=== PATIENT | male | born 1950 | race Caucasian/White ===

== ENCOUNTER 2022-10-31 22:13 | Emergency (ER) | payer MEDICARE ==
--- NOTE | 2022-10-31 22:25 | ERPHSYRPT ---
- History of Present Illness Time Seen by Provider: 10/31/22 22:24 Source: patient Exam Limitations: no limitations Physician History: Samara was unloading clothes from dryer, turned around and hit head on cabinet. He denies LOC, but had significant bleeding and swelling of left forehead. He has a severe COOK w/out vision changes or focal deficit. He takes ASA 325mg QD. Occurred: just prior to arrival Severity: mild Head Injury Location: frontal Method of Injury: direct blow Loss of Consciousness: no loss of consciousness Associated Symptoms: denies symptoms Allergies/Adverse Reactions: No Known Drug Allergies Allergy (Unverified 10/31/22 22:20) Home Medications: Aspirin EC 325 mg [Ecotrin 325 MG] 1 tab PO DAILY 10/31/22 [History] Atorvastatin Calcium 40 mg PO DAILY 10/31/22 [History] Dapagliflozin Propanediol [Farxiga] 5 mg PO DAILY 10/31/22 [History] Fluticasone/Salmeterol 500/50* [Advair 500-50 Diskus] 1 puff IH BID 10/31/22 [History] Furosemide 20 mg [Lasix 20 mg] 1 tab PO DAILY 10/31/22 [History] Gabapentin 300 mg PO HS 10/31/22 [History] Glipizide 10 mg [Glucotrol 10 MG] 10 mg PO BID 10/31/22 [History] Linaclotide [Linzess] 72 mcg PO DAILY 10/31/22 [History] Liraglutide [Victoza 2-Nick] 1.8 mg SQ WEEKLY 10/31/22 [History] Lisinopril 10 mg [Zestril 10 MG] 10 mg PO DAILY 10/31/22 [History] Metoprolol Succinate 25 mg Xl* [Toprol-Xl 25MG Tablets] 25 mg PO HS 10/31/22 [History] - Review of Systems Constitutional: No Symptoms Eyes: No Symptoms Ears, Nose, & Throat: No Symptoms Respiratory: No Symptoms Cardiac: No Symptoms Abdominal/Gastrointestinal: No Symptoms Genitourinary Symptoms: No Symptoms Musculoskeletal: No Symptoms Skin: Other (bleeding cut) Neurological: Headache Psychological: No Symptoms Endocrine: No Symptoms Hematologic/Lymphatic: No Symptoms Immunological/Allergic: No Symptoms All Other Systems: Reviewed and Negative - Nursing Vital Signs Nursing Vital Signs: Initial Vital Signs Temperature 97.8 F 10/31/22 22:18 Pulse Rate 75 10/31/22 22:18 Respiratory Rate 20 10/31/22 22:18 Blood Pressure 154/72 10/31/22 22:18 O2 Sat by Pulse Oximetry 96 10/31/22 22:18 Pain Scale Pain Intensity 6 - [place] Coma Score Best Eye Response ([place]): (4) open spontaneously Best Verbal Response ([place]): (5) oriented Best Motor Response ([place]): (6) obeys commands [place] Total: 15 - Physical Exam General Appearance: no apparent distress Head Injury: active bleeding, lacerations (1.5cm left frontal region), swelling (left frontal region), tenderness, No Simmons's Sign, No raccoon eyes Eye Exam: bilateral eye: normal inspection, PERRL, EOMI ENT Exam: airway nml Neck Exam: supple, full range of motion, normal alignment, normal inspection Cardiovascular/Respiratory Exam: normal breath sounds, regular rate/rhythm, heart sounds normal Gastrointestinal/Abdominal Exam: soft, non tender Extremity Exam: non-tender, normal range of motion Mental Status Exam: alert, oriented x 3, cooperative bus cleaner Exam: normal hearing, normal speech, PERRL, tongue midline Coordination/Gait Exam: normal finger to nose, normal gait, normal cerebellar function Motor/Sensory Exam: no motor deficit, no sensory deficit, no pronator drift, CN II-XII intact Skin Exam: normal color, warm, dry, laceration (left frontal region, 1.5cm in length, skin avulsed) SpO2 Interpretation: normal SpO2: 96 O2 Delivery: Room Air Procedures - Laceration/Wound Repair Left Head Time of Procedure: 22:40 Wound Location: Left, forehead Wound Length (cm): 1.5 Wound's Depth, Shape: superficial Wound Explored: no foreign body noted Irrigated: Yes Hibiclens Prep: Yes Wound Debrided: minimal Wound Repaired With: Dermabond Sterile Dressing Applied?: No - Course Nursing assessment & vital signs reviewed: Yes - CT Exams Head CT Interpretation: Negative Ordered Tests: Active Orders 24 hr Category Date Time Status Cold Application STAT Care 10/31/22 22:21 Active Wound Care STAT Care 10/31/22 22:43 Active HEAD WITHOUT CONTRAST [CT] Stat Exams 10/31/22 22:45 Taken Medication Summary Discontinued Medications Generic Name Dose Route Start Last Admin Trade Name Franc PRN Reason Stop Dose Admin Acetaminophen 975 mg 10/31/22 22:43 10/31/22 22:47 Acetaminophen 325 Mg Tablet PO 10/31/22 22:44 975 mg STAT ONE Administration Acetaminophen Confirm 10/31/22 22:46 Acetaminophen 325 Mg Tablet Administered 10/31/22 22:47 Dose 975 mg .ROUTE [place]-MED ONE - Progress Progress: improved Progress Note: Laceration repaired with dermabond. Good hemostasis achieved. CT head neg for acute pathology. COOK improved after Tylenol. Fells safe for d/c. 10/31/22 23:43 Counseled pt/family regarding: lab results, rad results Medical Desision Making - Diagnostic Testing Diagnostic Testing: Diagnostic tests were ordered,analyzed, and reviewed by me and used in my medical decision making for this patient. Radiologic studies (if ordered) were read by me initially then discussed with the radiologist . - Risk of complications The pt has a mod risk of morbidity or mortality based on: Need for minor surgical intervention in patient with know risk factors - Departure Departure Disposition: Home Clinical Impression: Head trauma, Laceration, Headache Condition: Good Critical Care Time: No Referrals: DOCTOR,NO FAMILY [Primary Care Provider] - Follow up/PCP as directed Instructions: Laceration Repair With Glue (DC) Additional Instructions: You have been evaluated in the Emergency Department today for your head injury. Your CT scan did not show signs of bleeds or fractures in your head. We recommend you take 600mg ibuprofen every 6 hours or tylenol 650mg every 6 hours as needed for pain. If needed, you can alternate these medications so that you take one medication every 3 hours. For instance, at noon take ibuprofen, then at 3pm take tylenol, then at 6pm take ibuprofen. Please schedule an appointment for follow up with your primary care physician as soon as possible. Return to the Emergency Department if you experience worsening or uncontrolled pain, vision changes, recurrent vomiting, difficulty with normal activities, abnormal behavior, difficulty walking, numbness, weakness, or any other concerning symptoms. Thank you for choosing us for your care.
[2022-10-31] MEDS ORDERED: TYLENOL 325 MG PO ONE (22:43)
[2022-10-31] MEDS ORDERED: TYLENOL 325 MG ONE (22:46)
[2022-11-01] VITALS: BP 108/58; PULSE 71; O2SAT 94
--- NOTE | 2022-11-01 07:58 | XRAY ---
Indication: Left forehead injury. Multiple contiguous axial images obtained through the head without contrast. Comparison: None Age-appropriate global atrophy and minimal periventricular degenerative micro-ischemia bilaterally. No acute intracranial hemorrhage, abnormal extra-axial fluid collection, or mass effect. Fourth ventricle is midline without hydrocephalus. Small left frontal scalp hematoma near the vertex. Bony calvarium intact. Visualized paranasal sinuses and mastoid air cells are clear. Impression: Left scalp hematoma. Otherwise nonacute senile brain. Comment: Preliminary interpretation made by [facility]. No critical discrepancy.
== END 2022-11-01 00:04 | disposition home or self-care (01) ==
LOC: ED 22:13
DX: S01.81XA Laceration without foreign body of other part of head, initial encounter (principal); W22.03XA Walked into furniture, initial encounter; Y93.E2 Activity, laundry; R51.9 Headache, unspecified; Z79.84 Long term (current) use of oral hypoglycemic drugs; Z79.85 Long-term (current) use of injectable non-insulin antidiabetic drugs; Z79.899 Other long term (current) drug therapy
CPT/HCPCS: 12001; 70450; 99283; A9270-GY

== ENCOUNTER 2023-02-10 20:27 | Emergency (ER) | payer MEDICARE ==
[2023-02-10 21:30] LABS: Absolute Neutrophil Ct (ANC) 5.72 x10^3/uL (1.4-6.9); BASOPHIL % 0.9 % (0.0-0.4); Basophil (Absolute #) 0.08 x10^3/uL (0-0.4); Eosinophil (Absolute #) 0.17 x10^3/uL (0-0.5); Hematocrit 49.3 % (42-50); Hemoglobin 15.8 g/dL (12.5-18.0); IMMATURE GRAN # 0.03 x10^3u/L (0.00-0.03); IMMATURE GRAN % 0.4 % (0.00-0.4); Lymphocyte (Absolute #) 1.77 x10^3/uL (1.0-4.6); Lymphocytes % 20.7 % (24.0-44.0); Mean Cell Volume 82.6 fL (78-100); Mean Corpuscular Hemoglobin 26.5 pg (26-32); Mean Platelet Volume 8.8 fL (7.5-11.0); Monocyte (Absolute #) 0.78 x10^3/uL (0.0-1.3); Monocytes % 9.1 % (0.0-12.0); Neutrophil % 66.9 % (36.0-66.0); Platelet Count 188 x10^3/uL (150-450); Red Blood Count 5.97 x10^6/uL (4.1-5.6); Red Cell Distribution Width 13.7 % (11.5-14.0); White Blood Count 8.6 x10^3/uL (4.0-10.5)
[2023-02-10 21:38] LABS: ALBUMIN 4.3 g/dL (3.5-5.0); ALKALINE PHOSPHATASE 121 U/L (38-126); ANION GAP 14.3 MEQ/L (5-15); BLOOD UREA NITROGEN 22 mg/dL (9-20); CHLORIDE 100 mmol/L (98-107); Calcium 9.2 mg/dL (8.4-10.2); Carbon Dioxide 23 mmol/L (22-30); EST GLOMERULAR FILTRATION RATE > 60.0 ML/MIN; Glucose 186 mg/dL (74-106); Potassium 4.2 mmol/L (3.5-5.1); SGOT/AST 50 U/L (17-59); SGPT/ALT 41 U/L (0-50); SODIUM 133 mmol/L (137-145)
[2023-02-10 22:03] VITALS: BP 130/69; PULSE 79; O2SAT 92
[2023-02-10] MEDS ORDERED: Unasyn 1.5GM Vial*** 1.5 G in Sodium Chloride 0.9% 100 ML IV ONE (22:30)
[2023-02-10] MEDS ORDERED: Sodium Chloride 0.9% 100 ML ONE (22:34)
--- NOTE | 2023-02-10 22:37 | ERPHSYRPT ---
- History of Present Illness Time Seen by Provider: 02/10/23 20:33 Source: patient Exam Limitations: no limitations Patient Subjective Stated Complaint: pt states that he has redness, swelling, and a rash to his leg and arm Triage Nursing Assessment: pt ambulated into the er; pt is axo x4; c/o swelling to LLE; warmth, swelling, redness to LLE; strong left pedal pulse; good cap refill to LLE; abrasion present to rt upper arm; no warmth, swelling present to rt upper arm; skin PDW; vitals wnl; no SOB present Physician History: 72-year-old male with history of hypertension, hyperlipidemia, diabetes mellitus presented to the ER with chief complaint of left leg swelling for the last 3 days with progressive worsening with associated redness and moderate intensity sharp pain due to swelling and tightness of the leg. No fever or chills reported. Denies any fall or trauma. No difficulty movements at ankle and knee joint. Patient also have a small rash on the right arm with possible insect bite. Denies any chest pain palpitations or shortness of breath. Timing/Duration: day(s) (3) Quality: burning, painful Severity: mild, moderate Location: extremities Possible Causes: no cause identified Associated Symptoms: rash, swelling/mass/lumps Allergies/Adverse Reactions: No Known Drug Allergies Allergy (Verified 02/10/23 20:34) Home Medications: Aspirin EC 325 mg [Ecotrin 325 MG] 1 tab PO DAILY 10/31/22 [History] Atorvastatin Calcium 40 mg PO DAILY 10/31/22 [History] Dapagliflozin Propanediol [Farxiga] 5 mg PO DAILY 10/31/22 [History] Fluticasone/Salmeterol 500/50* [Advair 500-50 Diskus] 1 puff IH BID 10/31/22 [History] Furosemide 20 mg [Lasix 20 mg] 1 tab PO DAILY 10/31/22 [History] Gabapentin 300 mg PO HS 10/31/22 [History] Glipizide 10 mg [Glucotrol 10 MG] 10 mg PO BID 10/31/22 [History] Linaclotide [Linzess] 72 mcg PO DAILY 10/31/22 [History] Liraglutide [Victoza 2-Nick] 1.8 mg SQ WEEKLY 10/31/22 [History] Lisinopril 10 mg [Zestril 10 MG] 10 mg PO DAILY 10/31/22 [History] Metoprolol Succinate 25 mg Xl* [Toprol-Xl 25MG Tablets] 25 mg PO HS 10/31/22 [History] Hx Tetanus, Diphtheria Vaccination/Date Given: Yes Hx Influenza Vaccination/Date Given: No Hx Pneumococcal Vaccination/Date Given: No Travel Risk - International Travel Have you traveled outside of the country in past 3 weeks: No - Coronavirus Screening Are you exhibiting any of the following symptoms?: No Close contact with a COVID-19 positive Pt in past 14-21 Days: No - Vaccine Status Have you recieved a Covid-19 vaccination: No - Review of Systems Constitutional: No Symptoms Ears, Nose, & Throat: No Symptoms Respiratory: No Symptoms Cardiac: No Symptoms Abdominal/Gastrointestinal: No Symptoms Genitourinary Symptoms: No Symptoms Musculoskeletal: No Symptoms Skin: Cellulitis, Rash Neurological: No Symptoms Psychological: No Symptoms Endocrine: No Symptoms Hematologic/Lymphatic: No Symptoms - Past Medical History Pertinent Past Medical History: Yes Neurological History: Peripheral Neuropathy ENT History: No Pertinent History Cardiac History: High Cholesterol, Hypertension Respiratory History: Asthma, CHF, COPD Endocrine Medical History: Diabetes Type II Musculoskeletal History: Other GI Medical History: No Pertinent History History: No Pertinent History Psycho-Social History: No Pertinent History Male Reproductive Disorders: No Pertinent History Other Medical History: 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 - Past Surgical History Past Surgical History: Yes Neuro Surgical History: No Pertinent History Cardiac: No Pertinent History Respiratory: No Pertinent History Gastrointestinal: No Pertinent History Genitourinary: No Pertinent History Musculoskeletal: No Pertinent History Male Surgical History: No Pertinent History Other Surgical History: steel rods in lower back, fatty tumor removed - Social History Smoking Status: Former smoker Exposure to second hand smoke: No Drug Use: none Patient Lives Alone: No - Nursing Vital Signs Nursing Vital Signs: Initial Vital Signs Temperature 97.8 F 02/10/23 20:36 Pulse Rate 89 02/10/23 20:36 Respiratory Rate 22 02/10/23 20:36 Blood Pressure 97/74 02/10/23 20:36 O2 Sat by Pulse Oximetry 94 L 02/10/23 20:36 Pain Scale Pain Intensity 9 - Physical Exam General Appearance: no apparent distress, alert Eye Exam: PERRL/EOMI Ears, Nose, Throat Exam: normal ENT inspection Neck Exam: normal inspection, supple, full range of motion Respiratory Exam: normal breath sounds, lungs clear Cardiovascular Exam: regular rate/rhythm, normal heart sounds Gastrointestinal/Abdomen Exam: soft, No tenderness Extremity Exam: normal range of motion, pelvis stable, swelling, tenderness (Right lower half of leg swelling/erythema from mid calf to just above ankle. Blanchable, mild increased temperature, mild to moderate tenderness of soft tissue. No bony tenderness. Intact range of motion at ankle and knee. Distal neurovascular well intact.) Neurologic Exam: alert, oriented x 3, cooperative Skin Exam: normal color SpO2 Interpretation: normal SpO2: 92 O2 Delivery: Room Air Ordered Tests: Active Orders 24 hr Category Date Time Status IV Insertion STAT Care 02/10/23 21:17 Active VENOUS UNILAT/LIMITED EXTREMIT [US] Stat Exams 02/10/23 21:09 Taken BLOOD CULTURE Stat Lab 02/10/23 21:15 Received CBC W DIFF Stat Lab 02/10/23 21:15 Completed CMP Stat Lab 02/10/23 21:15 Completed Lactic Acid Stat Lab 02/10/23 21:15 Completed Medication Summary Generic Name Dose Route Start Last Admin Trade Name Freq PRN Reason Stop Dose Admin Ampicillin Sodium/Sulbactam 100 mls @ 200 mls/hr 02/10/23 22:30 02/10/23 22:42 Sodium 1.5 g/ Sodium Chloride IV 02/10/23 22:59 200 mls/hr STAT ONE Administration Discontinued Medications Generic Name Dose Route Start Last Admin Trade Name Freq PRN Reason Stop Dose Admin Sodium Chloride Confirm 02/10/23 22:34 Sodium Chloride 0.9% Administered 02/10/23 22:35 Dose 100 mls @ ud .ROUTE .STK-MED ONE Lab/Rad Data: Laboratory Result Diagrams 02/10/23 21:15 02/10/23 21:15 Laboratory Results 02/10/23 02/10/23 02/10/23 Range/Units 21:15 21:15 21:15 WBC 8.6 (4.0-10.5) x10^3/uL RBC 5.97 H (4.1-5.6) x10^6/uL Hgb 15.8 (12.5-18.0) g/dL Hct 49.3 (42-50) % MCV 82.6 (78-100) fL MCH 26.5 (26-32) pg MCHC 32.0 (32-36) g/dL RDW 13.7 (11.5-14.0) % Plt Count 188 (150-450) x10^3/uL MPV 8.8 (7.5-11.0) fL Gran % 66.9 H (36.0-66.0) % Immature Gran % (Auto) 0.4 (0.00-0.4) % Nucleat RBC Rel Count 0.0 (0.00-0.1) % Eos # (Auto) 0.17 (0-0.5) x10^3/uL Immature Gran # (Auto) 0.03 (0.00-0.03) x10^3u/L Absolute Lymphs (auto) 1.77 (1.0-4.6) x10^3/uL Absolute Monos (auto) 0.78 (0.0-1.3) x10^3/uL Absolute Nucleated RBC 0.00 (0.00-0.01) x10^3u/L Lymphocytes % 20.7 L (24.0-44.0) % Monocytes % 9.1 (0.0-12.0) % Eosinophils % 2.0 (0.00-5.0) % Basophils % 0.9 (0.0-0.4) % Absolute Granulocytes 5.72 (1.4-6.9) x10^3/uL Basophils # 0.08 (0-0.4) x10^3/uL Sodium 133 L (137-145) mmol/L Potassium 4.2 (3.5-5.1) mmol/L Chloride 100 (98-107) mmol/L Carbon Dioxide 23 (22-30) mmol/L Anion Gap 14.3 (5-15) MEQ/L BUN 22 H (9-20) mg/dL Creatinine 1.00 (0.66-1.25) mg/dL Estimated GFR > 60.0 ML/MIN Glucose 186 H (74-106) mg/dL Lactic Acid 1.1 (0.4-2.0) Calcium 9.2 (8.4-10.2) mg/dL Total Bilirubin 1.60 H (0.2-1.3) mg/dL AST 50 (17-59) U/L ALT 41 (0-50) U/L Alkaline Phosphatase 121 (38-126) U/L Serum Total Protein 7.0 (6.3-8.2) g/dL Albumin 4.3 (3.5-5.0) g/dL - Progress Progress: unchanged, re-examined Progress Note: 02/10/23 22:49 72-year-old male with history of hypertension, hyperlipidemia, diabetes mellitus presented to the ER with chief complaint of left leg swelling for the last 3 days with progressive worsening with associated redness and moderate intensity sharp pain due to swelling and tightness of the leg. No fever or chills reported. Denies any fall or trauma. No difficulty movements at ankle and knee joint. Patient also have a small rash on the right arm with possible insect bite. Denies any chest pain palpitations or shortness of breath. Differentials include cellulitis, fracture, DVT, congestive heart related swelling, insect bite etc. Offered pain medication which she declined. Has normal white count and fairly unremarkable chemistries and normal lactate. Blood cultures are obtained. I have obtained ultrasound which is negative for DVT per preliminary report, official/final report is pending. No bony tenderness. No swelling/edema of the right side suggesting CHF. Patient does not have any chest pain and lungs clear to auscultation. I believe patient has cellulitis, started on antibiotics. Given a dose of Unasyn here and will continue with Augmentin to go home. Discussed signs symptoms of worsening nee ding return to ER which he seems understanding. Stable for discharge. Counseled pt/family regarding: lab results, diagnosis, need for follow-up, rad results Medical Desision Making - Independent Historian Additional History obtained from: Child - Discussion of managment Reviewed:: Test results, Need for additional workup Agreed on:: Treatment plan, need for follow-up - Diagnostic Testing Diagnostic test were ordered, analyzed, and reviewed by me: Yes Radiological Interpretation: Reviewed by me - Risk of complications The pt has a mod risk of morbidity or mortality based on: Need for prescription drug management - Departure Departure Disposition: Home Clinical Impression: Left leg cellulitis Condition: Stable Critical Care Time: No Referrals: DOCTOR,NO FAMILY [Primary Care Provider] - Follow up/PCP as directed Instructions: Cellulitis (Skin Infection), Adult (DC) Additional Instructions: Take Tylenol as needed for pain. Keep it elevated. Continue with your current medications Follow-up with primary care for reevaluation in 2 days. Return to ER for increasing pain swelling redness, fever chills etc. Prescriptions: Amox Tr/Potass Clav. 875 mg [Augmentin 875-125 Tablet] 875 mg PO BID #14 tablet
--- NOTE | 2023-02-11 08:34 | XRAY ---
Indication: Pain and swelling. Two-dimensional sonogram and color Doppler imaging of the major venous vessels of the left leg performed. Comparison: None No thrombus seen in the examined deep venous vessels of the left leg including greater saphenous vein. Veins demonstrate normal compressibility. Venous waveforms are normal with and without augmentation. Impression: Left leg negative for DVT. Comment: Preliminary report was given.
== END 2023-02-10 23:23 | disposition home or self-care (01) ==
LOC: ED 20:27
DX: L03.116 Cellulitis of left lower limb (principal); R60.0 Localized edema; M79.605 Pain in left leg; I10 Essential (primary) hypertension; E78.5 Hyperlipidemia, unspecified; E11.42 Type 2 diabetes mellitus with diabetic polyneuropathy; Z79.84 Long term (current) use of oral hypoglycemic drugs; Z79.85 Long-term (current) use of injectable non-insulin antidiabetic drugs; Z79.899 Other long term (current) drug therapy; Z28.310 Unvaccinated for COVID-19
CPT/HCPCS: 36000; 36415; 80053; 83605; 85025; 87040; 93971; 96374; 99284; J0295

== ENCOUNTER 2023-09-06 05:17 | Emergency (ER) | payer MEDICARE ==
[2023-09-06 05:37] VITALS: TEMP 96.7
[2023-09-06] MEDS ORDERED: TORAdol 30 mg Injection IM ONE (05:43)
[2023-09-06] MEDS ORDERED: Norflex 60 MG/2 ML IM ONE (05:43)
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
[2023-09-06] MEDS ORDERED: TORAdol 30 mg Injection ONE (05:49)
[2023-09-06] MEDS ORDERED: Norflex 60 MG/2 ML ONE (05:50)
[2023-09-06 07:04] VITALS: RESP 20
--- NOTE | 2023-09-06 08:09 | XRAY ---
CLINICAL HISTORY:FABIOLA HIP PAIN, LBP, SACRUM AND COCCY COMPARISON:None TECHNIQUE:CT scan of lumbar spine done. Axial images were obtained with reformatted coronal and sagittal images and submitted for interpretation. FINDINGS: Spinal fixation is noted in between the L4-L5 and S1 vertebral bodies with a disc spacer in between the L4-L5 and L5-S1 level no evidence of break or loosening noted. Right-sided laminectomy noted at L5 S1 level. Multilevel anterior osteophytes are seen with multilevel bilateral facet joint arthropathy. Preserved physiological lumbar lordosis. Normal vertebral bodies height and alignment. Intact vertebral bodies and neural arches. A sclerotic area was noted on the left side of the sacroiliac joint. No definite fractures could be detected. Segmental disc analysis level by level: L1- L2: There is no significant disc herniation or neural foraminal narrowing visualized. Central canal is unremarkable. No sign of lateral recess stenosis. Nerve roots are normal. L2- L3: Bilateral paracentral disc protrusion noted measuring 2.5 mm causing bilateral mild neural foraminal narrowing and compressive affect on bilateral exiting nerve roots, no central canal is stenosis noted. L3- L4: Central and bilateral paracentral disc protrusion is noted measuring 3 mm with specks of air in the central canal causing bilateral mild neural foramina narrowing and compressive effect on bilateral exiting nerve roots . L4- L5: Disc spacers is noted with right laminectomy.The central canal appears unremarkable L5- S1: Disc spacers is noted with right laminectomy.The central canal appears unremarkable No retro paraspinal soft tissue masses. No developmental canal stenosis. IMPRESSION: The bilateral paracentral disc protrusion at the L2-L3 level and a central and bilateral paracentral disc protrusion at the L3-L4 level caused bilateral mild neural foraminal narrowing. Disc spacer in between the L4-L5 and L5-S1 level with right-sided laminectomy while central canal at this level appears unremarkable. Spinal fixation in between the L4-L5 and S1 vertebral bodies without evidence of break or loosening. Electronically Signed by: Winston Cruz MD. (09/06/2023 08:05:25 EST)
--- NOTE | 2023-09-06 08:31 | XRAY ---
CLINICAL HISTORY:FABIOLA HIP PAIN, LBP COMPARISON:None. TECHNIQUE:A CT scan of the pelvis was performed without IV contrast. Coronal and sagittal reconstructive images were obtained. FINDINGS: A well-defined Lucent/lytic area with marginal sclerosis is noted in the left side of the iliac bone lateral to the left sacroiliac joint with cortical erosion of the lateral side of the iliac bone. Spinal fixators are noted in between the L4-L5 and S1 levels without evidence of break or loosening. Both hip joints are normal. The hip joints reveal normal rounded contour. No evidence of articular collapse. Few cystic changes were noted in both acetabulums With tiny marginal osteophyte more marked on the left side, likely degenerative The joint spaces are normal. No loose bodies.With tiny marginal There is no evidence of joint effusion. Bilateral sacroiliac joints appear normal. The visualized soft tissues are normal. The prostate appears bulky with central calcification. A hernial defect is noted in the anterior abdominal wall in the midline in the infra-umbilical region with fatty omentum as a content. IMPRESSION: 1. Early degenerative changes were noted in both hip joints more marked on left side. 2. A Lucent/Lytic area with sclerotic margins is noted in the left side of the iliac bone lateral to the left sacroiliac joint with cortical erosion of the lateral side of the iliac bone which is a continuation of this sclerotic area findings could be due to old healed infective changes? If indicated clinically would recommend further workup Electronically Signed by: Winston Cruz MD. (09/06/2023 08:26:26 EST)
[2023-09-06 08:34] VITALS: O2SAT 95
[2023-09-06 09:04] LABS: Absolute Neutrophil Ct (ANC) 5.54 x10^3/uL (1.4-6.9); BASOPHIL % 0.5 % (0.0-0.4); Basophil (Absolute #) 0.04 x10^3/uL (0-0.4); Eosinophil % 1.7 % (0.00-5.0); Eosinophil (Absolute #) 0.13 x10^3/uL (0-0.5); Hematocrit 49.1 % (42-50); Hemoglobin 15.2 g/dL (12.5-18.0); IMMATURE GRAN # 0.04 x10^3u/L (0.00-0.03); IMMATURE GRAN % 0.5 % (0.00-0.4); Lymphocyte (Absolute #) 1.42 x10^3/uL (1.0-4.6); Lymphocytes % 18.2 % (24.0-44.0); Mean Cell Volume 83.2 fL (78-100); Mean Corpuscular Hemoglobin 25.8 pg (26-32); Mean Platelet Volume 9.2 fL (7.5-11.0); Monocyte (Absolute #) 0.63 x10^3/uL (0.0-1.3); Monocytes % 8.1 % (0.0-12.0); Platelet Count 135 x10^3/uL (150-450); Red Cell Distribution Width 13.9 % (11.5-14.0); White Blood Count 7.8 x10^3/uL (4.0-10.5)
[2023-09-06 09:17] LABS: ALBUMIN 3.9 g/dL (3.5-5.0); ANION GAP 10.7 MEQ/L (5-15); BILIRUBIN,TOTAL 1.2 mg/dL (0.2-1.3); Calcium 8.9 mg/dL (8.4-10.2); Creatinine 1 1.02 mg/dL (0.66-1.25); EST GLOMERULAR FILTRATION RATE 78.1 ML/MIN; Potassium 4.2 mmol/L (3.5-5.1); Total Protein 6.7 g/dL (6.3-8.2)
[2023-09-06 09:25] LABS: Slide Review 1 YES
[2023-09-06 09:40] VITALS: BP 122/76; PULSE 70
== END 2023-09-06 09:57 | disposition home or self-care (01) ==
LOC: ED 05:17
DX: M25.552 Pain in left hip (principal); M54.50 Low back pain, unspecified; I11.0 Hypertensive heart disease with heart failure; I50.9 Heart failure, unspecified; E11.42 Type 2 diabetes mellitus with diabetic polyneuropathy; Z79.84 Long term (current) use of oral hypoglycemic drugs; Z79.85 Long-term (current) use of injectable non-insulin antidiabetic drugs; Z79.891 Long term (current) use of opiate analgesic; Z79.899 Other long term (current) drug therapy; Z28.310 Unvaccinated for COVID-19
CPT/HCPCS: 36415; 72131; 72192; 80053; 83605; 85025; 85652; 96372; 99283; J1885; J2360

== ENCOUNTER 2024-03-14 13:39 | Emergency (ER) | payer MEDICARE ==
--- NOTE | 2024-03-14 14:11 | ERPHSYRPT ---
- History of Present Illness Time Seen by Provider: 03/14/24 14:10 Source: patient Physician History: 73-year-old male referred to our ED by his primary care doctor for hyperglycemia. Patient states he checked his blood sugar in his office today. It was 350. Patient followed up with his primary care doctor. It was reportedly 600 in the office. Patient was sent to our ED for evaluation and treatment. Patient was advised to follow-up with his primary care doctor tomorrow morning. No chest pain or shortness of breath. No nausea vomiting or diaphoresis. Patient is currently asymptomatic. He voices no other complaints or concerns at this time. Portions of this note were created with voice recognition technology. There may be grammatical, spelling, punctuation or sound alike errors Timing/Duration: today Severity: moderate Modifying Factors: Improves With: nothing Associated Symptoms: denies symptoms Allergies/Adverse Reactions: No Known Drug Allergies Allergy (Verified 03/14/24 13:59) Home Medications: Aspirin EC 325 mg [Ecotrin 325 MG] 1 tab PO DAILY 10/31/22 [History] Atorvastatin Calcium 40 mg PO HS 10/31/22 [History] Dapagliflozin Propanediol [Farxiga] 5 mg PO DAILY 10/31/22 [History] Furosemide 20 mg [Lasix 20 mg] 1 tab PO DAILY 10/31/22 [History] Gabapentin 300 mg PO DAILY 10/31/22 [History] Glipizide 10 mg [Glucotrol 10 MG] 10 mg PO DAILY 10/31/22 [History] Linaclotide [Linzess] 145 mcg PO DAILY 10/31/22 [History] Liraglutide [Victoza 2-Nick] 1.8 mg SQ DAILY 10/31/22 [History] Lisinopril 10 mg [Zestril 10 MG] 10 mg PO DAILY 10/31/22 [History] Metoprolol Succinate 25 mg Xl* [Toprol-Xl 25MG Tablets] 25 mg PO DAILY 10/31/22 [History] Cholecalciferol (Vitamin D3) [Vitamin D] 1,000 unit PO DAILY 09/06/23 [History] Fluticasone/Salmeterol 500/50* [Advair 500-50 Diskus] 1 each IH BID 09/06/23 [History] Nitroglycerin 0.4 mg Tablet [Nitrostat 0.4 MG Tablet] 0.4 mg SL UD 09/06/23 [History] Potassium Chloride [Klor-Con 10] 1 tab PO DAILY 09/06/23 [History] Hx Tetanus, Diphtheria Vaccination/Date Given: Yes Hx Influenza Vaccination/Date Given: No Hx Pneumococcal Vaccination/Date Given: No Travel Risk - Emerging Infectious Disease Are you exhibiting symptoms associated with any current EIDs: No - Review of Systems Constitutional: No Symptoms, No Fever, No Chills Eyes: No Symptoms Ears, Nose, & Throat: No Symptoms Respiratory: No Symptoms, No Cough, No Dyspnea Cardiac: No Symptoms, No Chest Pain, No Edema, No Syncope Abdominal/Gastrointestinal: No Symptoms, No Abdominal Pain, No Nausea, No Vomiting, No Diarrhea Genitourinary Symptoms: No Symptoms, No Dysuria Musculoskeletal: No Symptoms, No Back Pain, No Neck Pain Skin: No Rash Neurological: No Dizziness, No Focal Weakness, No Sensory Changes Psychological: No Symptoms Endocrine: No Symptoms All Other Systems: Reviewed and Negative - Past Medical History Pertinent Past Medical History: Yes Neurological History: Peripheral Neuropathy ENT History: No Pertinent History Cardiac History: High Cholesterol, Hypertension Respiratory History: Asthma, CHF, COPD Endocrine Medical History: Diabetes Type II Musculoskeletal History: Other GI Medical History: No Pertinent History History: No Pertinent History Psycho-Social History: No Pertinent History Male Reproductive Disorders: No Pertinent History Other Medical History: 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 - Past Surgical History Past Surgical History: Yes Neuro Surgical History: No Pertinent History Cardiac: No Pertinent History Respiratory: No Pertinent History Gastrointestinal: No Pertinent History Genitourinary: No Pertinent History Musculoskeletal: No Pertinent History Male Surgical History: No Pertinent History Other Surgical History: steel rods in lower back, fatty tumor removed - Social History Smoking Status: Former smoker Exposure to second hand smoke: No Drug Use: none Patient Lives Alone: No - Social Determinants of Health Will the patient participate in the screening: Declined to provide - Nursing Vital Signs Nursing Vital Signs: Initial Vital Signs Temperature 98.4 F 03/14/24 14:00 Pulse Rate 89 03/14/24 14:00 Respiratory Rate 20 03/14/24 14:00 Blood Pressure 137/96 03/14/24 14:00 O2 Sat by Pulse Oximetry 95 06/25/24 14:00 Pain Scale Pain Intensity 0 - Physical Exam General Appearance: no apparent distress, alert Eye Exam: PERRL/EOMI, eyes nml inspection Ears, Nose, Throat Exam: normal ENT inspection, moist mucous membranes Neck Exam: normal inspection, non-tender, supple, full range of motion Respiratory Exam: normal breath sounds, lungs clear, airway intact, No respiratory distress Cardiovascular Exam: regular rate/rhythm, normal heart sounds, normal peripheral pulses Gastrointestinal/Abdomen Exam: soft, normal bowel sounds, No tenderness, No mass Back Exam: normal inspection, normal range of motion, No CVA tenderness, No vertebral tenderness Extremity Exam: normal inspection, normal range of motion, pelvis stable Neurologic Exam: alert, oriented x 3, cooperative, normal mood/affect, nml cerebellar function, nml station & gait, sensation nml, No motor deficits Skin Exam: normal color, warm, dry, No rash Lymphatic Exam: No adenopathy SpO2 Interpretation: normal SpO2: 95 O2 Delivery: Room Air - Course Nursing assessment & vital signs reviewed: Yes EKG Interpreted by Me: RATE ([id number]), Sinus Rhythm, NORMAL AXIS, NORMAL INTERVALS Ordered Tests: Active Orders 24 hr Category Date Time Status Crusher And Binder Operator STAT Care 03/14/24 13:58 Active EKG-ER Only STAT Care 03/14/24 13:58 Active IV Insertion STAT Care 03/14/24 13:58 Active POCT Glucose Check STAT Care 03/14/24 18:02 Active Pulse Oximetry (ED) STAT Care 03/14/24 13:58 Active CBC W DIFF Stat Lab 03/14/24 14:00 Completed CMP Stat Lab 03/14/24 14:00 Completed CMP Stat Lab 03/14/24 18:07 Completed POCT GLUCOSE Stat Lab 03/14/24 17:58 Completed TROPONIN Q4H Lab 03/14/24 14:00 Completed TROPONIN Q4H Lab 03/14/24 18:07 Completed TROPONIN Q4H Lab 03/14/24 22:00 Ordered UA W/RFX UR CULTURE Stat Lab 03/14/24 14:16 Completed Medication Summary Generic Name Dose Route Start Last Admin Trade Name Freq PRN Reason Stop Dose Admin Sodium Chloride 1,000 mls @ 100 mls/hr 03/14/24 14:00 03/14/24 14:16 Sodium Chloride 0.9% 1000 Ml IV 04/13/24 13:59 100 mls/hr .Q10H PARKER Administration Discontinued Medications Generic Name Dose Route Start Last Admin Trade Name Franc PRN Reason Stop Dose Admin Sodium Chloride 1,000 mls @ 999 mls/hr 03/14/24 16:15 03/14/24 18:19 Sodium Chloride 0.9% 1000 Ml IV 03/14/24 17:15 Infused .Q1H1M STA Infusion Insulin Human Regular 6 unit 03/14/24 17:59 03/14/24 18:19 Insulin Regular, Human 1 Unit IV 03/14/24 18:00 6 unit STAT ONE Administration Insulin Human Regular Confirm 03/14/24 18:18 Insulin Regular, Human 1 Unit Administered 03/14/24 18:19 Dose 6 unit .ROUTE .Overwolf ONE Lab/Rad Data: Laboratory Result Diagrams 03/14/24 14:00 03/14/24 18:07 Laboratory Results 03/14/24 03/14/24 03/14/24 Range/Units 18:07 18:07 17:58 WBC (4.23-9.07) x10^3/uL RBC (4.63-6.08) x10^6/uL Hgb (13.7-17.5) g/dL Hct (40.1-51.0) % MCV (79.0-92.2) fL MCH (25.7-32.2) pg MCHC (32.3-36.5) g/dL RDW (11.6-14.4) % Plt Count (163-337) x10^3/uL MPV (9.4-12.4) fL Gran % (34.0-67.9) % Immature Gran % (Auto) (0.001-0.429) % Nucleat RBC Rel Count (0.00-0.2) % Eos # (Auto) (0.04-0.54) x10^3/uL Immature Gran # (Auto) (0.001-0.031) x10^3u/L Absolute Lymphs (auto) (1.32-3.57) x10^3/uL Absolute Monos (auto) (0.30-0.82) x10^3/uL Absolute Nucleated RBC (0.00-0.012) x10^3u/L Lymphocytes % (21.8-53.1) % Monocytes % (5.3-12.2) % Eosinophils % (0.8-7.0) % Basophils % (0.2-1.2) % Absolute Granulocytes (1.78-5.38) x10^3/uL Basophils # (0.01-0.08) x10^3/uL Sodium 134 L D (135-145) mmol/L Potassium 4.3 (3.5-5.1) mmol/L Chloride 103 (98-107) mmol/L Carbon Dioxide 25 (22-30) mmol/L Anion Gap 10.1 (5-15) MEQ/L BUN 17 (9-20) mg/dL Creatinine 0.82 (0.66-1.25) mg/dL Estimated GFR 93.3 ML/MIN Glucose 354 H (74-106) mg/dL POC Glucometer 355 H (74 to 106) mg/dL Calcium 8.7 (8.4-10.2) mg/dL Total Bilirubin 1.70 H (0.2-1.3) mg/dL AST 22 (17-59) U/L ALT 37 (0-50) U/L Alkaline Phosphatase 137 H (38-126) U/L Troponin I < 0.012 (0.000-0.033) ng/mL Serum Total Protein 6.1 L (6.3-8.2) g/dL Albumin 3.7 (3.5-5.0) g/dL Urine Color (Yellow) Urine Appearance (Clear) Urine pH (4.6-8.0) Ur Specific [place] (1.005-1.030) Urine Protein (Negative) Urine Glucose (UA) (Negative) mg/dL Urine Ketones (Negative) Urine Blood (Negative) Urine Nitrite (Negative) Urine Bilirubin (Negative) Urine Urobilinogen (0.2) mg/dL Ur Leukocyte Esterase (Negative) U Hyaline Cast (Auto) (0-2) /LPF Urine Microscopic RBC (0-5) /HPF Urine Microscopic WBC (0-5) /HPF Ur Epithelial Cells (None Seen) /HPF Urine Bacteria (None Seen) /HPF Urine Culture Reflexed (NO) 03/14/24 03/14/24 03/14/24 Range/Units 14:16 14:00 14:00 WBC (4.23-9.07) x10^3/uL RBC (4.63-6.08) x10^6/uL Hgb (13.7-17.5) g/dL Hct (40.1-51.0) % MCV (79.0-92.2) fL MCH (25.7-32.2) pg MCHC (32.3-36.5) g/dL RDW (11.6-14.4) % Plt Count (163-337) x10^3/uL MPV (9.4-12.4) fL Gran % (34.0-67.9) % Immature Gran % (Auto) (0.001-0.429) % Nucleat RBC Rel Count (0.00-0.2) % Eos # (Auto) (0.04-0.54) x10^3/uL Immature Gran # (Auto) (0.001-0.031) x10^3u/L Absolute Lymphs (auto) (1.32-3.57) x10^3/uL Absolute Monos (auto) (0.30-0.82) x10^3/uL Absolute Nucleated RBC (0.00-0.012) x10^3u/L Lymphocytes % (21.8-53.1) % Monocytes % (5.3-12.2) % Eosinophils % (0.8-7.0) % Basophils % (0.2-1.2) % Absolute Granulocytes (1.78-5.38) x10^3/uL Basophils # (0.01-0.08) x10^3/uL Sodium 123 L (135-145) mmol/L Potassium 3.9 (3.5-5.1) mmol/L Chloride 92 L (98-107) mmol/L Carbon Dioxide 20 L (22-30) mmol/L Anion Gap 15.4 H (5-15) MEQ/L BUN 20 (9-20) mg/dL Creatinine 0.92 (0.66-1.25) mg/dL Estimated GFR 88.4 ML/MIN Glucose 806 H* (74-106) mg/dL POC Glucometer (74 to 106) mg/dL Calcium 8.8 (8.4-10.2) mg/dL Total Bilirubin 1.90 H (0.2-1.3) mg/dL AST 22 (17-59) U/L ALT 39 (0-50) U/L Alkaline Phosphatase 175 H (38-126) U/L Troponin I < 0.012 (0.000-0.033) ng/mL Serum Total Protein 6.2 L (6.3-8.2) g/dL Albumin 3.8 (3.5-5.0) g/dL Urine Color Yellow (Yellow) Urine Appearance Clear (Clear) Urine pH 5.0 (4.6-8.0) Ur Specific [place] >=1.030 A (1.005-1.030) Urine Protein Negative (Negative) Urine Glucose (UA) >=1000 A (Negative) mg/dL Urine Ketones Negative (Negative) Urine Blood Negative (Negative) Urine Nitrite Negative (Negative) Urine Bilirubin Negative (Negative) Urine Urobilinogen 0.2 (0.2) mg/dL Ur Leukocyte Esterase Negative (Negative) U Hyaline Cast (Auto) NONE SEEN (0-2) /LPF Urine Microscopic RBC 0-2 (0-5) /HPF Urine Microscopic WBC 0-2 (0-5) /HPF Ur Epithelial Cells None Seen (None Seen) /HPF Urine Bacteria None Seen (None Seen) /HPF Urine Culture Reflexed NO (NO) 03/14/24 Range/Units 14:00 WBC 11.0 H (4.23-9.07) x10^3/uL RBC 5.66 (4.63-6.08) x10^6/uL Hgb 15.2 (13.7-17.5) g/dL Hct 47.1 (40.1-51.0) % MCV 83.2 (79.0-92.2) fL MCH 26.9 (25.7-32.2) pg MCHC 32.3 (32.3-36.5) g/dL RDW 14.3 (11.6-14.4) % Plt Count 171 (163-337) x10^3/uL MPV 9.3 L (9.4-12.4) fL Gran % 84.6 H (34.0-67.9) % Immature Gran % (Auto) 0.5 H (0.001-0.429) % Nucleat RBC Rel Count 0.0 (0.00-0.2) % Eos # (Auto) 0.04 (0.04-0.54) x10^3/uL Immature Gran # (Auto) 0.05 H (0.001-0.031) x10^3u/L Absolute Lymphs (auto) 0.91 L (1.32-3.57) x10^3/uL Absolute Monos (auto) 0.65 (0.30-0.82) x10^3/uL Absolute Nucleated RBC 0.00 (0.00-0.012) x10^3u/L Lymphocytes % 8.2 L (21.8-53.1) % Monocytes % 5.9 (5.3-12.2) % Eosinophils % 0.4 L (0.8-7.0) % Basophils % 0.4 (0.2-1.2) % Absolute Granulocytes 9.35 H (1.78-5.38) x10^3/uL Basophils # 0.04 (0.01-0.08) x10^3/uL Sodium (135-145) mmol/L Potassium (3.5-5.1) mmol/L Chloride (98-107) mmol/L Carbon Dioxide (22-30) mmol/L Anion Gap (5-15) MEQ/L BUN (9-20) mg/dL Creatinine (0.66-1.25) mg/dL Estimated GFR ML/MIN Glucose (74-106) mg/dL POC Glucometer (74 to 106) mg/dL Calcium (8.4-10.2) mg/dL Total Bilirubin (0.2-1.3) mg/dL AST (17-59) U/L ALT (0-50) U/L Alkaline Phosphatase (38-126) U/L Troponin I (0.000-0.033) ng/mL Serum Total Protein (6.3-8.2) g/dL Albumin (3.5-5.0) g/dL Urine Color (Yellow) Urine Appearance (Clear) Urine pH (4.6-8.0) Ur Specific [place] (1.005-1.030) Urine Protein (Negative) Urine Glucose (UA) (Negative) mg/dL Urine Ketones (Negative) Urine Blood (Negative) Urine Nitrite (Negative) Urine Bilirubin (Negative) Urine Urobilinogen (0.2) mg/dL Ur Leukocyte Esterase (Negative) U Hyaline Cast (Auto) (0-2) /LPF Urine Microscopic RBC (0-5) /HPF Urine Microscopic WBC (0-5) /HPF Ur Epithelial Cells (None Seen) /HPF Urine Bacteria (None Seen) /HPF Urine Culture Reflexed (NO) - Progress Progress: improved Progress Note: 73-year-old male sent to our ED for hyperglycemia. Patient referred to our ER for treatment of his hyperglycemia. Patient otherwise asymptomatic. Troponin negative. Urinalysis negative. Patient was observed to be dehydrated based on labs and physical exam. Patient received 2 L normal saline. Blood glucose improved from 800-3 55 with rehydration only. Patient then received 6 units of regular insulin. Glucose now 265. Patient feels well he is asymptomatic and is now requesting discharge. No indication for further workup. Family at bedside. Will discharge patient home per his request. He agrees to follow-up with his primary care doctor tomorrow morning. He voices no other complaints at this time. Portions of this note were created with voice recognition technology. There may be grammatical, spelling, punctuation or sound alike errors Complexity problem addressed is moderate acute complicated. No critical care time. Complex of data reviewed and analyzed is moderate. Test ordered test reviewed results analyzed and correlated clinically with history and physical exam. Risk of complication and or risk of morbidity/mortality patient management is moderate. Vital stable. Time spent to discharge patient a pproximately 20 minutes. Plan of care established for shared decision making. No social determinants of health present impede follow-up. Portions of this note were created with voice recognition technology. There may be grammatical, spelling, punctuation or sound alike errors 03/14/24 19:24 Counseled pt/family regarding: lab results, diagnosis, need for follow-up - Departure Departure Disposition: Home Clinical Impression: Dehydration, Hyperglycemia Condition: Stable Critical Care Time: No Referrals: TERRI FRANK DO [Primary Care Provider] - Follow up/PCP as directed Additional Instructions: Discharge/Care Plan [email or web address] Frederick was seen on 03/14/24 in the Emergency Room. The patient was counseled regarding Diagnosis,Lab results, Imaging studies, need for follow up and when to return to the Emergency Room. Prescriptions given: Discharge Note I have spoken with the patient and/or caregivers. I have explained the patient's condition, diagnosis and treatment plan based on the information available to me at this time. I have answered the patient's and/or caregiver's questions and addressed any concerns. The patient and/or caregivers have as good understanding of the patient's diagnosis, condition and treatment plan as can be expected at this point. The vital signs have been stable. The patient's condition is stable and appropriate for discharge from the emergency department. The patient will pursue further outpatient evaluation with the primary care hyacinth sician or other designated or consulting physician as outlined in the discharge instructions. The patient and/or caregivers are agreeable to this plan of care and follow-up instructions have been explained in detail. The patient and/or caregivers have received these instruction. The patient/and or caregivers are aware that any significant change in condition or worsening of symptoms should prompt an immediate return to this or the closest emergency department or call 911.
[2024-03-14 14:12] VITALS: RESP 20; TEMP 98.4
[2024-03-14] MEDS ORDERED: Sodium Chloride 0.9% 1000 ML 1,000 ML ONE ×2 (14:14→16:14)
[2024-03-14] MEDS: Sodium Chloride 0.9% 1000 ML 1,000 ML IV SCH (14:16)
[2024-03-14 14:20] LABS: Absolute Neutrophil Ct (ANC) 9.35 x10^3/uL (1.78-5.38); BASOPHIL % 0.4 % (0.2-1.2); Basophil (Absolute #) 0.04 x10^3/uL (0.01-0.08); Eosinophil % 0.4 % (0.8-7.0); Eosinophil (Absolute #) 0.04 x10^3/uL (0.04-0.54); Hematocrit 47.1 % (40.1-51.0); Hemoglobin 15.2 g/dL (13.7-17.5); IMMATURE GRAN # 0.05 x10^3u/L (0.001-0.031); IMMATURE GRAN % 0.5 % (0.001-0.429); Lymphocyte (Absolute #) 0.91 x10^3/uL (1.32-3.57); Lymphocytes % 8.2 % (21.8-53.1); Mean Cell Volume 83.2 fL (79.0-92.2); Mean Corpuscular Hemoglobin 26.9 pg (25.7-32.2); Mean Corpuscular Hgb Concent. 32.3 g/dL (32.3-36.5); Mean Platelet Volume 9.3 fL (9.4-12.4); Monocyte (Absolute #) 0.65 x10^3/uL (0.30-0.82); Monocytes % 5.9 % (5.3-12.2); Neutrophil % 84.6 % (34.0-67.9); Platelet Count 171 x10^3/uL (163-337); Red Blood Count 5.66 x10^6/uL (4.63-6.08); Red Cell Distribution Width 14.3 % (11.6-14.4)
[2024-03-14 14:34] LABS: ALBUMIN 3.8 g/dL (3.5-5.0); ANION GAP 15.4 MEQ/L (5-15); BILIRUBIN,TOTAL 1.9 mg/dL (0.2-1.3); Calcium 8.8 mg/dL (8.4-10.2); Creatinine 1 0.92 mg/dL (0.66-1.25); EST GLOMERULAR FILTRATION RATE 88.4 ML/MIN; Potassium 3.9 mmol/L (3.5-5.1); Total Protein 6.2 g/dL (6.3-8.2)
[2024-03-14 14:41] LABS: Bacteria None Seen /HPF (None Seen); Epithelial Cells None Seen /HPF (None Seen); Hyaline Casts NONE SEEN /LPF (0-2); RBC 0-2 /HPF (0-5); WBC 0-2 /HPF (0-5)
[2024-03-14 14:45] LABS: Appearance Clear (Clear); Bilirubin Negative (Negative); Blood Negative (Negative); Glucose, Urine >=1000 mg/dL (Negative); Ketones Negative (Negative); Leukocyte Esterase Negative (Negative); Nitrite Negative (Negative); Protein,Urine Dip Negative (Negative); Specific Gravity >=1.030 (1.005-1.030); Urobilinogen 0.2 mg/dL (0.2)
[2024-03-14 14:55] LABS: ADD URINE CULTURE? NO (NO)
[2024-03-14] MEDS: Sodium Chloride 0.9% 1000 ML 1,000 ML IV STA (16:17)
[2024-03-14] MEDS ORDERED: HUMULIN R ONE (18:18)
[2024-03-14] MEDS: HUMULIN R IV ONE (18:19)
[2024-03-14 18:21] LABS: ALBUMIN 3.7 g/dL (3.5-5.0); ANION GAP 10.1 MEQ/L (5-15); BILIRUBIN,TOTAL 1.7 mg/dL (0.2-1.3); Calcium 8.7 mg/dL (8.4-10.2); Creatinine 1 0.82 mg/dL (0.66-1.25); EST GLOMERULAR FILTRATION RATE 93.3 ML/MIN; Potassium 4.3 mmol/L (3.5-5.1); Total Protein 6.1 g/dL (6.3-8.2)
[2024-03-14 19:25] VITALS: BP 134/69; PULSE 82
[2024-03-14 19:27] VITALS: O2SAT 95
== END 2024-03-14 19:34 | disposition home or self-care (01) ==
LOC: ED 13:39
DX: E86.0 Dehydration (principal); E11.65 Type 2 diabetes mellitus with hyperglycemia; E78.5 Hyperlipidemia, unspecified; I11.0 Hypertensive heart disease with heart failure; I50.9 Heart failure, unspecified; E11.42 Type 2 diabetes mellitus with diabetic polyneuropathy; Z79.84 Long term (current) use of oral hypoglycemic drugs; Z79.85 Long-term (current) use of injectable non-insulin antidiabetic drugs; Z79.899 Other long term (current) drug therapy
CPT/HCPCS: 36000; 36415; 80053; 81001; 82947; 84484; 85025; 93005; 93041; 94760; 96360; 96374; 99284; J1815

== ENCOUNTER 2024-08-08 20:09 | Observation (INO) | payer MEDICARE, OTHER ==
[2024-08-08] MEDS ORDERED: Sodium Chloride 0.9% 1000 ML 1,000 ML ONE (20:54)
[2024-08-08] MEDS ORDERED: Zofran 4 MG/2 ML VIAL ONE (20:54)
[2024-08-08] MEDS ORDERED: TYLENOL 325 MG ONE (20:54)
[2024-08-08] MEDS: Sodium Chloride 0.9% 1000 ML 1,000 ML IV STA (20:57)
[2024-08-08] MEDS: TYLENOL 325 MG PO STA (20:57)
[2024-08-08] MEDS: Zofran 4 MG/2 ML VIAL IV ONE (20:57)
--- NOTE | 2024-08-08 21:06 | ERPHSYRPT ---
- History of Present Illness Time Seen by Provider: 08/08/24 20:30 Source: patient Exam Limitations: no limitations Patient Subjective Stated Complaint: Bilateral arms and legs weak for last 2-3 days. Having cold chills and feels nauseated. Triage Nursing Assessment: Patient presents with bilateral arm and leg weakness x 3-4 days. Stated that he has been having some cold chills and joint pain with this. Having increased urination. Physician History: 74-year-old male history of diabetes presents to our ED for evaluation of progressive symptoms. Patient states that he has been experiencing diffuse bodyaches cold chills fever generalized weakness over the past 2 to 3 days. Patient states he has been urinating more frequently as well. He has not checked his blood sugar in several days. Patient denies pain but states that he has somewhat short of breath. Symptoms have been progressive. Symptoms are moderate in intensity. No specific worsening or improving factors. Patient was febrile upon arrival. Daughter at bedside. They voiced no other complaints or concerns at this time. Portions of this note were created with voice recognition technology. There may be grammatical, spelling, punctuation or sound alike errors Timing/Duration: day(s) (2 to 3 days) Severity: moderate Modifying Factors: Improves With: nothing Associated Symptoms: fever, weakness, other (body ache) Allergies/Adverse Reactions: No Known Drug Allergies Allergy (Verified 08/08/24 20:38) Home Medications: Aspirin EC 325 mg [Ecotrin 325 MG] 1 tab PO DAILY 10/31/22 [History] Atorvastatin Calcium 40 mg PO HS 10/31/22 [History] Dapagliflozin Propanediol [Farxiga] 5 mg PO DAILY 10/31/22 [History] Furosemide 20 mg [Lasix 20 mg] 1 tab PO DAILY 10/31/22 [History] Gabapentin 300 mg PO BID 10/31/22 [History] Linaclotide [Linzess] 145 mcg PO DAILY 10/31/22 [History] Lisinopril 10 mg [Zestril 10 MG] 10 mg PO DAILY 10/31/22 [History] Metoprolol Succinate 25 mg Xl* [Toprol-Xl 25MG Tablets] 25 mg PO DAILY 10/31/22 [History] Cholecalciferol (Vitamin D3) [Vitamin D] 1,000 unit PO DAILY 09/06/23 [History] Nitroglycerin 0.4 mg Tablet [Nitrostat 0.4 MG Tablet] 0.4 mg SL UD 09/06/23 [History] Potassium Chloride [Klor-Con 10] 1 tab PO BID 09/06/23 [History] Budesonide/Glycopyr/Formoterol [Breztri Aerosphere Inhaler] 2 puff IH BID 08/08/24 [History] Semaglutide [Ozempic] 2 mg SQ WEEKLY 08/08/24 [History] Tamsulosin HCl 0.4 mg [Flomax 0.4 MG] 0.4 mg PO DAILY 08/08/24 [History] Hx Tetanus, Diphtheria Vaccination/Date Given: Yes Hx Influenza Vaccination/Date Given: Yes Hx Pneumococcal Vaccination/Date Given: Yes Immunizations Up to Date: Yes Travel Risk - International Travel Have you traveled outside of the country in past 3 weeks: No - Emerging Infectious Disease Are you exhibiting symptoms associated with any current EIDs: Yes Symptoms: Fever, Headaches/Body Aches/, Joint Pain - Review of Systems Constitutional: No Symptoms, No Fever, No Chills Eyes: No Symptoms Ears, Nose, & Throat: No Symptoms Respiratory: No Symptoms, No Cough, No Dyspnea Cardiac: No Symptoms, No Chest Pain, No Edema, No Syncope Abdominal/Gastrointestinal: No Symptoms, No Abdominal Pain, No Nausea, No Vomiting, No Diarrhea Genitourinary Symptoms: No Symptoms, No Dysuria Musculoskeletal: No Symptoms, No Back Pain, No Neck Pain Skin: No Symptoms, No Rash Neurological: No Symptoms, No Dizziness, No Focal Weakness, No Sensory Changes Psychological: No Symptoms Endocrine: No Symptoms Hematologic/Lymphatic: No Symptoms Immunological/Allergic: No Symptoms All Other Systems: Reviewed and Negative - Past Medical History Pertinent Past Medical History: Yes Neurological History: Peripheral Neuropathy ENT History: No Pertinent History Cardiac History: High Cholesterol, Hypertension Respiratory History: Asthma, CHF, COPD Endocrine Medical History: Diabetes Type II Musculoskeletal History: Other GI Medical History: No Pertinent History History: No Pertinent History Psycho-Social History: No Pertinent History Male Reproductive Disorders: No Pertinent History Other Medical History: 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 - Past Surgical History Past Surgical History: Yes Neuro Surgical History: No Pertinent History Cardiac: No Pertinent History Respiratory: No Pertinent History Gastrointestinal: No Pertinent History Genitourinary: No Pertinent History Musculoskeletal: No Pertinent History Male Surgical History: No Pertinent History Other Surgical History: steel rods in lower back, fatty tumor removed - Social History Smoking Status: Former smoker Exposure to second hand smoke: No Drug Use: none Patient Lives Alone: No - Social Determinants of Health Will the patient participate in the screening: Yes Do you worry about a steady place to live?: No Do you have any problems with any of the following?: No known problems In the past 12 months,have you had to go without utilities?: No Transportation Issues: Yes Has anyone in your support network made you feel unsafe?: No Have you or anyone in your house had to go without enough: No - Nursing Vital Signs Nursing Vital Signs: Initial Vital Signs Temperature 101.4 F 08/08/24 20:10 Pulse Rate 124 H 08/08/24 20:10 Respiratory Rate 20 08/08/24 20:10 Blood Pressure 176/83 08/08/24 20:10 Pain Scale Pain Intensity 0 - Physical Exam General Appearance: no apparent distress, alert Eye Exam: PERRL/EOMI, eyes nml inspection Ears, Nose, Throat Exam: normal ENT inspection, TMs normal, pharynx normal, mois t mucous membranes Neck Exam: normal inspection, non-tender, supple, full range of motion Respiratory Exam: normal breath sounds, lungs clear, airway intact, No respiratory distress Cardiovascular Exam: regular rate/rhythm, normal heart sounds, normal peripheral pulses Gastrointestinal/Abdomen Exam: soft, normal bowel sounds, No tenderness, No mass Back Exam: normal inspection, normal range of motion, No CVA tenderness, No vertebral tenderness Extremity Exam: normal inspection, normal range of motion, pelvis stable Neurologic Exam: alert, oriented x 3, cooperative, normal mood/affect, nml cerebellar function, nml station & gait, sensation nml, No motor deficits Skin Exam: normal color, warm, dry, No rash Lymphatic Exam: No adenopathy SpO2 Interpretation: normal SpO2: 90 O2 Delivery: Room Air - Course Nursing assessment & vital signs reviewed: Yes EKG Interpreted by Me: RATE ([id number]), Sinus Tach, NORMAL AXIS, NORMAL INTERVALS, NORMAL QRS - CT Exams Chest CT Interpretation: Tele-radiologist Report (CT chest negative for PE) Ordered Tests: Active Orders 24 hr Category Date Time Status Hypnotherapist STAT Care 08/08/24 20:51 Active EKG-ER Only STAT Care 08/08/24 20:50 Active IV Insertion STAT Care 08/08/24 20:50 Active IV Insertion-2nd Peripheral STAT Care 08/08/24 20:50 Active Oxygen-ED Only Nasal Cannula 2 lpm Care 08/08/24 21:30 Active Pulse Oximetry (ED) STAT Care 08/08/24 20:50 Active CHEST 1 VIEW (PORTABLE) Stat Exams 08/08/24 20:50 Taken CHEST WITH CONTRAST [CT] Stat Exams 08/08/24 22:51 Completed BLOOD CULTURE Stat Lab 08/08/24 20:45 Received CBC W DIFF Stat Lab 08/08/24 20:40 Completed CMP Stat Lab 08/08/24 20:40 Completed CULTURE,URINE Stat Lab 08/08/24 20:53 Received D-DIMER QUANTITATIVE Stat Lab 08/08/24 20:40 Completed Lactic Acid Stat Lab 08/08/24 20:50 Completed MONO SCREEN Stat Lab 08/08/24 20:40 Completed NT PRO BNPII Stat Lab 08/08/24 20:40 Completed PROCALCITONIN Stat Lab 08/08/24 20:40 Completed UA W/RFX UR CULTURE Stat Lab 08/08/24 20:53 Completed Transfer Order Routine Transfer 08/09/24 Ordered Medication Summary Discontinued Medications Generic Name Dose Route Start Last Admin Trade Name Freq PRN Reason Stop Dose Admin Acetaminophen 975 mg 08/08/24 20:50 08/08/24 20:57 Acetaminophen 325 Mg Tablet PO 08/08/24 20:51 975 mg STAT STA Administration Acetaminophen Confirm 08/08/24 20:54 Acetaminophen 325 Mg Tablet Administered 08/08/24 20:55 Dose 975 mg .ROUTE .STK-MED ONE Sodium Chloride 1,000 mls @ 999 mls/hr 08/08/24 20:50 08/08/24 21:58 Sodium Chloride 0.9% 1000 Ml IV 08/08/24 21:50 Infused .Q1H1M STA Infusion Sodium Chloride Confirm 08/08/24 20:54 Sodium Chloride 0.9% 1000 Ml Administered 08/08/24 20:55 Dose 1,000 mls @ ud .ROUTE .STK-MED ONE Levofloxacin/Dextrose 750 mg in 150 mls @ 100 mls/hr 08/08/24 22:54 08/08/24 22:57 Levofloxacin 750mg/150ml D5w IV 08/09/24 00:23 Not Given STAT STA Levofloxacin/Dextrose 250 mg in 50 mls @ 50 mls/hr 08/08/24 22:57 08/09/24 01:00 Levaquin 250mg/50ml D5w IV 08/08/24 23:56 Infused STAT STA Infusion Levofloxacin/Dextrose 500 mg in 100 mls @ 100 mls/hr 08/08/24 22:57 08/09/24 01:06 Levofloxacin 500mg/100ml D5w IV 08/08/24 23:56 Infused STAT STA Infusion Levofloxacin/Dextrose Confirm 08/08/24 22:59 Levofloxacin 500mg/100ml D5w Administered 08/08/24 23:00 Dose 500 mg in 100 mls @ ud IV .STK-MED ONE Levofloxacin/Dextrose Confirm 08/08/24 22:59 Levaquin 250mg/50ml D5w Administered 08/08/24 23:00 Dose 250 mg in 50 mls @ ud IV .STK-MED ONE Ondansetron HCl 4 mg 08/08/24 20:50 08/08/24 20:57 Ondansetron Hcl 4 Mg/2 Ml Vial IV 08/08/24 20:51 4 mg STAT ONE Administration Ondansetron HCl Confirm 08/08/24 20:54 Ondansetron Hcl 4 Mg/2 Ml Vial Administered 08/08/24 20:55 Dose 4 mg .ROUTE .STK-MED ONE Lab/Rad Data: Laboratory Result Diagrams 08/08/24 20:40 08/08/24 20:40 Laboratory Results 08/08/24 08/08/24 08/08/24 Range/Units 21:00 20:53 20:50 WBC (4.23-9.07) x10^3/uL RBC (4.63-6.08) x10^6/uL Hgb (13.7-17.5) g/dL Hct (40.1-51.0) % MCV (79.0-92.2) fL MCH (25.7-32.2) pg MCHC (32.3-36.5) g/dL RDW (11.6-14.4) % Plt Count (163-337) x10^3/uL MPV (9.4-12.4) fL Gran % (34.0-67.9) % Immature Gran % (Auto) (0.001-0.429) % Nucleat RBC Rel Count (0.00-0.2) % Eos # (Auto) (0.04-0.54) x10^3/uL Immature Gran # (Auto) (0.001-0.031) x10^3u/L Absolute Lymphs (auto) (1.32-3.57) x10^3/uL Absolute Monos (auto) (0.30-0.82) x10^3/uL Absolute Nucleated RBC (0.00-0.012) x10^3u/L Lymphocytes % (21.8-53.1) % Monocytes % (5.3-12.2) % Eosinophils % (0.8-7.0) % Basophils % (0.2-1.2) % Absolute Granulocytes (1.78-5.38) x10^3/uL Basophils # (0.01-0.08) x10^3/uL D-Dimer (0.0-0.50) mg/L Sodium (135-145) mmol/L Potassium (3.5-5.1) mmol/L Chloride (98-107) mmol/L Carbon Dioxide (22-30) mmol/L Anion Gap (5-15) MEQ/L BUN (9-20) mg/dL Creatinine (0.66-1.25) mg/dL Estimated GFR ML/MIN Glucose (74-106) mg/dL Lactic Acid 1.2 (0.4-2.0) Calcium (8.4-10.2) mg/dL Total Bilirubin (0.2-1.3) mg/dL AST (17-59) U/L ALT (0-50) U/L Alkaline Phosphatase (38-126) U/L NT-Pro-B Natriuret Pep (<300) pg/mL Serum Total Protein (6.3-8.2) g/dL Albumin (3.5-5.0) g/dL Procalcitonin (0.030-0.080) ng/mL Urine Color Yellow (Yellow) Urine Appearance Clear (Clear) Urine pH 5.0 (4.6-8.0) Ur Specific [place] 1.025 (1.005-1.030) Urine Protein Negative (Negative) Urine Glucose (UA) >=1000 A (Negative) mg/dL Urine Ketones Negative (Negative) Urine Blood Negative (Negative) Urine Nitrite Negative (Negative) Urine Bilirubin Negative (Negative) Urine Urobilinogen 0.2 (0.2) mg/dL Ur Leukocyte Esterase Negative (Negative) U Hyaline Cast (Auto) NONE SEEN (0-2) /LPF Urine Microscopic RBC 0-2 (0-5) /HPF Urine Microscopic WBC 11-20 A (0-5) /HPF Ur Epithelial Cells None Seen (None Seen) /HPF Urine Bacteria Many A (None Seen) /HPF Urine Culture Reflexed YES (NO) Monoscreen (NEGATIVE) Influenza Type A Ag NEGATIVE (NEGATIVE) Influenza Type B Ag NEGATIVE (NEGATIVE) RSV (PCR) NEGATIVE (NEGATIVE) SARS-CoV-2 (PCR) NEGATIVE (NEGATIVE) Group A Strep Antibody NOT DETECTED (NEGATIVE) 08/08/24 08/08/24 08/08/24 Range/Units 20:40 20:40 20:40 WBC (4.23-9.07) x10^3/uL RBC (4.63-6.08) x10^6/uL Hgb (13.7-17.5) g/dL Hct (40.1-51.0) % MCV (79.0-92.2) fL MCH (25.7-32.2) pg MCHC (32.3-36.5) g/dL RDW (11.6-14.4) % Plt Count (163-337) x10^3/uL MPV (9.4-12.4) fL Gran % (34.0-67.9) % Immature Gran % (Auto) (0.001-0.429) % Nucleat RBC Rel Count (0.00-0.2) % Eos # (Auto) (0.04-0.54) x10^3/uL Immature Gran # (Auto) (0.001-0.031) x10^3u/L Absolute Lymphs (auto) (1.32-3.57) x10^3/uL Absolute Monos (auto) (0.30-0.82) x10^3/uL Absolute Nucleated RBC (0.00-0.012) x10^3u/L Lymphocytes % (21.8-53.1) % Monocytes % (5.3-12.2) % Eosinophils % (0.8-7.0) % Basophils % (0.2-1.2) % Absolute Granulocytes (1.78-5.38) x10^3/uL Basophils # (0.01-0.08) x10^3/uL D-Dimer 1.05 H* (0.0-0.50) mg/L Sodium 135 (135-145) mmol/L Potassium 3.7 (3.5-5.1) mmol/L Chloride 105 (98-107) mmol/L Carbon Dioxide 20 L (22-30) mmol/L Anion Gap 13.1 (5-15) MEQ/L BUN 19 (9-20) mg/dL Creatinine 1.07 (0.66-1.25) mg/dL Estimated GFR 73.3 ML/MIN Glucose 156 H (74-106) mg/dL Lactic Acid (0.4-2.0) Calcium 8.4 (8.4-10.2) mg/dL Total Bilirubin 2.50 H (0.2-1.3) mg/dL AST 22 (17-59) U/L ALT 21 (0-50) U/L Alkaline Phosphatase 84 (38-126) U/L NT-Pro-B Natriuret Pep 364 (<300) pg/mL Serum Total Protein 6.5 (6.3-8.2) g/dL Albumin 3.7 (3.5-5.0) g/dL Procalcitonin 0.672 H (0.030-0.080) ng/mL Urine Color (Yellow) Urine Appearance (Clear) Urine pH (4.6-8.0) Ur Specific [place] (1.005-1.030) Urine Protein (Negative) Urine Glucose (UA) (Negative) mg/dL Urine Ketones (Negative) Urine Blood (Negative) Urine Nitrite (Negative) Urine Bilirubin (Negative) Urine Urobilinogen (0.2) mg/dL Ur Leukocyte Esterase (Negative) U Hyaline Cast (Auto) (0-2) /LPF Urine Microscopic RBC (0-5) /HPF Urine Microscopic WBC (0-5) /HPF Ur Epithelial Cells (None Seen) /HPF Urine Bacteria (None Seen) /HPF Urine Culture Reflexed (NO) Monoscreen NEGATIVE (NEGATIVE) Influenza Type A Ag (NEGATIVE) Influenza Type B Ag (NEGATIVE) RSV (PCR) (NEGATIVE) SARS-CoV-2 (PCR) (NEGATIVE) Group A Strep Antibody (NEGATIVE) 08/08/24 Range/Units 20:40 WBC 9.5 H (4.23-9.07) x10^3/uL RBC 5.88 (4.63-6.08) x10^6/uL Hgb 15.2 (13.7-17.5) g/dL Hct 46.5 (40.1-51.0) % MCV 79.1 (79.0-92.2) fL MCH 25.9 (25.7-32.2) pg MCHC 32.7 (32.3-36.5) g/dL RDW 13.4 (11.6-14.4) % Plt Count 159 L (163-337) x10^3/uL MPV 9.0 L (9.4-12.4) fL Gran % 82.8 H (34.0-67.9) % Immature Gran % (Auto) 0.3 (0.001-0.429) % Nucleat RBC Rel Count 0.0 (0.00-0.2) % Eos # (Auto) 0.05 (0.04-0.54) x10^3/uL Immature Gran # (Auto) 0.03 (0.001-0.031) x10^3u/L Absolute Lymphs (auto) 0.63 L (1.32-3.57) x10^3/uL Absolute Monos (auto) 0.90 H (0.30-0.82) x10^3/uL Absolute Nucleated RBC 0.00 (0.00-0.012) x10^3u/L Lymphocytes % 6.6 L (21.8-53.1) % Monocytes % 9.5 (5.3-12.2) % Eosinophils % 0.5 L (0.8-7.0) % Basophils % 0.3 (0.2-1.2) % Absolute Granulocytes 7.85 H (1.78-5.38) x10^3/uL Basophils # 0.03 (0.01-0.08) x10^3/uL D-Dimer (0.0-0.50) mg/L Sodium (135-145) mmol/L Potassium (3.5-5.1) mmol/L Chloride (98-107) mmol/L Carbon Dioxide (22-30) mmol/L Anion Gap (5-15) MEQ/L BUN (9-20) mg/dL Creatinine (0.66-1.25) mg/dL Estimated GFR ML/MIN Glucose (74-106) mg/dL Lactic Acid (0.4-2.0) Calcium (8.4-10.2) mg/dL Total Bilirubin (0.2-1.3) mg/dL AST (17-59) U/L ALT (0-50) U/L Alkaline Phosphatase (38-126) U/L NT-Pro-B Natriuret Pep (<300) pg/mL Serum Total Protein (6.3-8.2) g/dL Albumin (3.5-5.0) g/dL Procalcitonin (0.030-0.080) ng/mL Urine Color (Yellow) Urine Appearance (Clear) Urine pH (4.6-8.0) Ur Specific [place] (1.005-1.030) Urine Protein (Negative) Urine Glucose (UA) (Negative) mg/dL Urine Ketones (Negative) Urine Blood (Negative) Urine Nitrite (Negative) Urine Bilirubin (Negative) Urine Urobilinogen (0.2) mg/dL Ur Leukocyte Esterase (Negative) U Hyaline Cast (Auto) (0-2) /LPF Urine Microscopic RBC (0-5) /HPF Urine Microscopic WBC (0-5) /HPF Ur Epithelial Cells (None Seen) /HPF Urine Bacteria (None Seen) /HPF Urine Culture Reflexed (NO) Monoscreen (NEGATIVE) Influenza Type A Ag (NEGATIVE) Influenza Type B Ag (NEGATIVE) RSV (PCR) (NEGATIVE) SARS-CoV-2 (PCR) (NEGATIVE) Group A Strep Antibody (NEGATIVE) - Progress Progress: improved Progress Note: 74-year-old male history of diabetes presents to our ED for evaluation of bodyaches, fever and generalized weakness. Physical exam essentially nonremarkable. Procalcitonin elevated.. Patient complains of generalized weakness. D-dimer positive. CTA chest negative for PE. No obvious pneumonia. UA significant for urinary tract infection. Patient received a dose of Levaquin. Patient will require hospitalization for further evaluation and treatment. Case discussed with who accepts admission to observation at 1:27 AM. Plan of care discussed with patient. He agrees to admission at [facility] for further evaluation and treatment. Portions of this note were created with voice recognition technology. There may be grammatical, spelling, punctuation or sound alike errors Complexity of problem addressed is moderate acute complicated. No critical care time. Complex of data reviewed and analyzed is extensive. Test ordered chest reviewed results analyzed and correlated clinically with history and physical exam. Management discussed with hospitalist who accepts admission to observation. Risk of morbidity/mortality of patient management is high. Patient requires hospitalization for further evaluation and treatment. Portions of this note were created with voice recognition technology. There may be grammatical, spelling, punctuation or sound alike errors 08/09/24 01:26 Counseled pt/family regarding: lab results, diagnosis, rad results - Departure Departure Disposition: Home Clinical Impression: Fever, Tachycardia, UTI (urinary tract infection) Condition: Stable Critical Care Time: No Referrals: TERRI FRANK DO [Primary Care Provider] - Follow up/PCP as directed
[2024-08-08 21:08] LABS: Absolute Neutrophil Ct (ANC) 7.85 x10^3/uL (1.78-5.38); BASOPHIL % 0.3 % (0.2-1.2); Basophil (Absolute #) 0.03 x10^3/uL (0.01-0.08); Eosinophil % 0.5 % (0.8-7.0); Eosinophil (Absolute #) 0.05 x10^3/uL (0.04-0.54); Hematocrit 46.5 % (40.1-51.0); Hemoglobin 15.2 g/dL (13.7-17.5); IMMATURE GRAN # 0.03 x10^3u/L (0.001-0.031); IMMATURE GRAN % 0.3 % (0.001-0.429); Lymphocyte (Absolute #) 0.63 x10^3/uL (1.32-3.57); Lymphocytes % 6.6 % (21.8-53.1); Mean Cell Volume 79.1 fL (79.0-92.2); Mean Corpuscular Hemoglobin 25.9 pg (25.7-32.2); Mean Corpuscular Hgb Concent. 32.7 g/dL (32.3-36.5); Monocytes % 9.5 % (5.3-12.2); Neutrophil % 82.8 % (34.0-67.9); Platelet Count 159 x10^3/uL (163-337); Red Blood Count 5.88 x10^6/uL (4.63-6.08); Red Cell Distribution Width 13.4 % (11.6-14.4); White Blood Count 9.5 x10^3/uL (4.23-9.07)
[2024-08-08 21:32] LABS: Group A Strep NOT DETECTED (NEGATIVE)
[2024-08-08 21:37] LABS: Appearance Clear (Clear); Bacteria Many /HPF (None Seen); Bilirubin Negative (Negative); Blood Negative (Negative); Epithelial Cells None Seen /HPF (None Seen); Glucose, Urine >=1000 mg/dL (Negative); Hyaline Casts NONE SEEN /LPF (0-2); Ketones Negative (Negative); Leukocyte Esterase Negative (Negative); Nitrite Negative (Negative); Protein,Urine Dip Negative (Negative); RBC 0-2 /HPF (0-5); Specific Gravity 1.025 (1.005-1.030); Urobilinogen 0.2 mg/dL (0.2)
[2024-08-08 21:44] LABS: INFLUENZA A NEGATIVE (NEGATIVE); INFLUENZA B NEGATIVE (NEGATIVE); RESPIRATORY SYNCTIAL VIRUS NEGATIVE (NEGATIVE); SARS-CoV-2 Xpert Express NEGATIVE (NEGATIVE)
[2024-08-08 22:27] LABS: ALBUMIN 3.7 g/dL (3.5-5.0); ANION GAP 13.1 MEQ/L (5-15); BILIRUBIN,TOTAL 2.5 mg/dL (0.2-1.3); Calcium 8.4 mg/dL (8.4-10.2); Creatinine 1 1.07 mg/dL (0.66-1.25); EST GLOMERULAR FILTRATION RATE 73.3 ML/MIN; PROCALCITONIN 0.672 ng/mL (0.030-0.080); Potassium 3.7 mmol/L (3.5-5.1); Total Protein 6.5 g/dL (6.3-8.2)
[2024-08-08] MEDS: LEVOFLOXACIN 750MG/150ML D5W 750 MG/150 ML BAG IV STA (22:57)
[2024-08-08] MEDS ORDERED: Levofloxacin 500MG/100ML D5W 500 MG/100 ML BAG IV ONE (22:59)
[2024-08-08] MEDS ORDERED: Levaquin 250MG/50ML D5W 250 MG/50 ML BAG IV ONE (22:59)
[2024-08-08] MEDS: Levaquin 250MG/50ML D5W 250 MG/50 ML BAG IV STA (23:01)
[2024-08-09] MEDS: Levofloxacin 500MG/100ML D5W 500 MG/100 ML BAG IV STA (00:05)
--- NOTE | 2024-08-09 01:05 | XRAY ---
CLINICAL HISTORY: SOB, fever, elevated d-dimer,r/o PE COMPARISON: None. TECHNIQUE: Contiguous axial images were obtained from the neck base through the upper abdomen following intravenous administration of contrast material. If IV contrast material had not been administered, the likelihood of detecting abnormalities relevant to the patient's condition would have been substantially decreased. In addition, sagittal and coronal reconstructions were performed. CT scan was performed according to ALARA (as low as reasonably achievable). Suboptimal evaluation due to late acquisition of the scan. FINDINGS: Few paraseptal emphysematous changes are noted in the bilateral upper lobes. Multiple centriacinar emphysematous changes are noted involving bilateral lung parenchyma. Subpleural subsegmental atelectasis with interstitial thickening at places is noted involving the dependent portions of bilateral lung parenchyma. Calcified nodule is noted in the superior segment of right lower lobe. The central airways are patent. There are no pleural effusions. No pneumothorax is seen. No pericardial effusion is identified. No axillary, hilar, or mediastinal adenopathy is identified. The heart, aorta, and pulmonary arteries are of normal size and configuration. Atherosclerotic calcifications are noted involving aorta and its branches, coronary arteries. The visualized thyroid is unremarkable. Imaged portions of the upper abdomen are unremarkable. No aggressive appearing osseous lesions are identified. IMPRESSION: 1. No obvious evidence of pulmonary embolism. Suboptimal evaluation due to late acquisition. 2. Few paraseptal emphysematous changes are noted in the bilateral upper lobes. 3. Multiple centriacinar emphysematous changes are noted involving bilateral lung parenchyma. 4. Subpleural subsegmental atelectasis with interstitial thickening at places is noted involving the dependent portions of bilateral lung parenchyma. 5. Calcified nodule is noted in the superior segment of right lower lobe. Electronically Signed by: Mervin Avalos MD. (08/09/2024 01:00:26 EST)
--- NOTE | 2024-08-09 01:43 | PCM.HP ---
History of Present Illness - Chief Complaint Chief Complaint: UTI, fever, generalized weakness Date: 08/09/24 History of Present Illness: 74 years old very pleasant male with possibility significant for diabetes mellitus type 2 hypertension, COPD, hyperlipidemia who initially came to ER with generalized for 3 days w/o localized deficit.He felt no strength in all extremities, unable to stand up, denied having chest pain, SOB, no N/V/D, no other GIt or urinary Sx noted. In the ER the initial blood pressure was 176/83 with pulse of 124 and temperature of 101.4. As far as lab workup concern it was significant for white cell count 9.5 hemoglobin 15.2 platelets 149. Sodium 135 potassium 3.7 chloride 105 bicarb 20 BUN 19 creatinine 1.07. Lactic acid 1.2. Urine was positive for many bacteria with WBCs 11-20. He was tested negative for influenza respiratory send CT and COVID. He was also tested negative for group A strep antibody. D-dimer was reported 1.05 lactate 1.2. Monoscreen was also negative. Chest CT was done to rule out pulmonary embolism it remained unremarkable except multiple send creatinine emphysematous changes otherwise negative. Patient admitted for further care - Review of Systems All Other Systems: Reviewed and Negative (14 systems reviewed) Medications & Allergies Home Medications: Home Medication List Aspirin EC 325 mg [Ecotrin 325 MG] 1 tab PO DAILY 10/31/22 [History Confirmed 08/08/24] Atorvastatin Calcium 40 mg PO HS 10/31/22 [History Confirmed 08/08/24] Dapagliflozin Propanediol [Farxiga] 5 mg PO DAILY 10/31/22 [History Confirmed 1 10/08/23] Furosemide 20 mg [Lasix 20 mg] 1 tab PO DAILY 10/31/22 [History Confirmed 08/08/24] Gabapentin 300 mg PO BID 10/31/22 [History Confirmed 08/08/24] Linaclotide [Linzess] 145 mcg PO DAILY 10/31/22 [History Confirmed 08/08/24] Lisinopril 10 mg [Zestril 10 MG] 10 mg PO DAILY 10/31/22 [History Confirmed 08/08/24] Metoprolol Succinate 25 mg Xl* [Toprol-Xl 25MG Tablets] 25 mg PO DAILY 10/31/22 [History Confirmed 08/08/24] Cholecalciferol (Vitamin D3) [Vitamin D] 1,000 unit PO DAILY 09/06/23 [History Confirmed 08/08/24] Nitroglycerin 0.4 mg Tablet [Nitrostat 0.4 MG Tablet] 0.4 mg SL UD 09/06/23 [History Confirmed 08/08/24] Potassium Chloride [Klor-Con 10] 1 tab PO BID 09/06/23 [History Confirmed 08/08/24] Budesonide/Glycopyr/Formoterol [Breztri Aerosphere Inhaler] 2 puff IH BID 08/08/24 [History Confirmed 08/08/24] Semaglutide [Ozempic] 2 mg SQ WEEKLY 08/08/24 [History Confirmed 08/08/24] Tamsulosin HCl 0.4 mg [Flomax 0.4 MG] 0.4 mg PO DAILY 08/08/24 [History Confirmed 08/08/24] Allergies/Adverse Reactions: Allergies Allergy/AdvReac Type Severity Reaction Status Date / Time No Known Drug Allergies Allergy Verified 08/08/24 20:38 - Past Medical History Past Medical History: Yes Neurological History: Peripheral Neuropathy ENT History: No Pertinent History Cardiac History: High Cholesterol, Hypertension Respiratory History: Asthma, CHF, COPD Endocrine Medical History: Diabetes Type II Musculoskelatal History: Other GI Medical History: No Pertinent History History: No Pertinent History Pyscho-Social History: No Pertinent History Male Reproductive Disorders: No Pertinent History Comment: 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 - Past Surgical History Past Surgical History: Yes Neuro Surgical History: No Pertinent History Cardiac History: No Pertinent History Respiratory Surgery: No Pertinent History GI Surgical History: No Pertinent History Genitourinary Surgical Hx: No Pertinent History Musculskeletal Surgical Hx: No Pertinent History Male Surgical History: No Pertinent History Other Surgical History: steel rods in lower back, fatty tumor removed Significant Family History: no pertinent family hx - Social History Smoking Status: Former smoker Exposure to second hand smoke: No Alcohol: None Drug Use: none - Social Determinants of Health Will the patient participate in the screening: Yes Do you worry about a steady place to live?: No Do you have any problems with any of the following?: No known problems In the past 12 months,have you had to go without utilities?: No Have you or anyone in your house had to go without enough: No Transportation Issues: Yes Has anyone in your support network made you feel unsafe?: No - Physical Exam Vital Signs: Vital Signs - 24 hr Temp Pulse Resp BP BP Pulse Ox 08/09/24 01:30 90 L 08/09/24 01:27 97.3 F 74 18 134/72 95 08/09/24 01:00 88 24 115/73 95 08/09/24 00:31 87 23 104/77 94 L 08/09/24 00:00 93 H 23 118/73 93 L 08/08/24 23:41 90 18 113/75 95 08/08/24 23:40 99 H 19 95 08/08/24 23:00 92 H 0 L 125/68 96 08/08/24 22:30 94 H 0 L 120/73 96 08/08/24 22:00 104 H 18 130/67 96 08/08/24 21:37 100.0 F 08/08/24 21:30 105 H 17 119/68 94 L 08/08/24 21:00 107 H 13 133/100 95 08/08/24 20:52 90 L 08/08/24 20:31 139/60 94 L 08/08/24 20:10 101.4 F 124 H 20 176/83 Additional Findings: 08/09/24 01:42 HEENT OLd aged, average built in no distress on 2 liters through LA NECK Supple,no thyromegaly, CVS S1+S2 + 0, no murmers RESP Bilateral equal air entry without Crepts/Wheezes heard GIT Soft non tender,non distended Skin, No rah, no Bruises LEGS No Edema PSYCH Normal,m ood, judgement and insight NEURO AOX3, no focal deficit 08/09/24 03:28 Results - Labs Lab/Micro Results: Lab Results-Last 24 Hours 08/08/24 08/08/24 08/08/24 Range/Units 20:40 20:40 20:40 WBC 9.5 H (4.23-9.07) x10^3/uL RBC 5.88 (4.63-6.08) x10^6/uL Hgb 15.2 (13.7-17.5) g/dL Hct 46.5 (40.1-51.0) % MCV 79.1 (79.0-92.2) fL MCH 25.9 (25.7-32.2) pg MCHC 32.7 (32.3-36.5) g/dL RDW 13.4 (11.6-14.4) % Plt Count 159 L (163-337) x10^3/uL MPV 9.0 L (9.4-12.4) fL Gran % 82.8 H (34.0-67.9) % Immature Gran % (Auto) 0.3 (0.001-0.429) % Nucleat RBC Rel Count 0.0 (0.00-0.2) % Eos # (Auto) 0.05 (0.04-0.54) x10^3/uL Immature Gran # (Auto) 0.03 (0.001-0.031) x10^3u/L Absolute Lymphs (auto) 0.63 L (1.32-3.57) x10^3/uL Absolute Monos (auto) 0.90 H (0.30-0.82) x10^3/uL Absolute Nucleated RBC 0.00 (0.00-0.012) x10^3u/L Lymphocytes % 6.6 L (21.8-53.1) % Monocytes % 9.5 (5.3-12.2) % Eosinophils % 0.5 L (0.8-7.0) % Basophils % 0.3 (0.2-1.2) % Absolute Granulocytes 7.85 H (1.78-5.38) x10^3/uL Basophils # 0.03 (0.01-0.08) x10^3/uL D-Dimer (0.0-0.50) mg/L Sodium 135 (135-145) mmol/L Potassium 3.7 (3.5-5.1) mmol/L Chloride 105 (98-107) mmol/L Carbon Dioxide 20 L (22-30) mmol/L Anion Gap 13.1 (5-15) MEQ/L BUN 19 (9-20) mg/dL Creatinine 1.07 (0.66-1.25) mg/dL Estimated GFR 73.3 ML/MIN Glucose 156 H (74-106) mg/dL Lactic Acid (0.4-2.0) Calcium 8.4 (8.4-10.2) mg/dL Total Bilirubin 2.50 H (0.2-1.3) mg/dL AST 22 (17-59) U/L ALT 21 (0-50) U/L Alkaline Phosphatase 84 (38-126) U/L NT-Pro-B Natriuret Pep 364 (<300) pg/mL Serum Total Protein 6.5 (6.3-8.2) g/dL Albumin 3.7 (3.5-5.0) g/dL Procalcitonin 0.672 H (0.030-0.080) ng/mL Urine Color (Yellow) Urine Appearance (Clear) Urine pH (4.6-8.0) Ur Specific [place] (1.005-1.030) Urine Protein (Negative) Urine Glucose (UA) (Negative) mg/dL Urine Ketones (Negative) Urine Blood (Negative) Urine Nitrite (Negative) Urine Bilirubin (Negative) Urine Urobilinogen (0.2) mg/dL Ur Leukocyte Esterase (Negative) U Hyaline Cast (Auto) (0-2) /LPF Urine Microscopic RBC (0-5) /HPF Urine Microscopic WBC (0-5) /HPF Ur Epithelial Cells (None Seen) /HPF Urine Bacteria (None Seen) /HPF Urine Culture Reflexed (NO) Monoscreen NEGATIVE (NEGATIVE) Influenza Type A Ag (NEGATIVE) Influenza Type B Ag (NEGATIVE) RSV (PCR) (NEGATIVE) SARS-CoV-2 (PCR) (NEGATIVE) Group A Strep Antibody (NEGATIVE) 08/08/24 08/08/24 08/08/24 Range/Units 20:40 20:50 20:53 WBC (4.23-9.07) x10^3/uL RBC (4.63-6.08) x10^6/uL Hgb (13.7-17.5) g/dL Hct (40.1-51.0) % MCV (79.0-92.2) fL MCH (25.7-32.2) pg MCHC (32.3-36.5) g/dL RDW (11.6-14.4) % Plt Count (163-337) x10^3/uL MPV (9.4-12.4) fL Gran % (34.0-67.9) % Immature Gran % (Auto) (0.001-0.429) % Nucleat RBC Rel Count (0.00-0.2) % Eos # (Auto) (0.04-0.54) x10^3/uL Immature Gran # (Auto) (0.001-0.031) x10^3u/L Absolute Lymphs (auto) (1.32-3.57) x10^3/uL Absolute Monos (auto) (0.30-0.82) x10^3/uL Absolute Nucleated RBC (0.00-0.012) x10^3u/L Lymphocytes % (21.8-53.1) % Monocytes % (5.3-12.2) % Eosinophils % (0.8-7.0) % Basophils % (0.2-1.2) % Absolute Granulocytes (1.78-5.38) x10^3/uL Basophils # (0.01-0.08) x10^3/uL D-Dimer 1.05 H* (0.0-0.50) mg/L Sodium (135-145) mmol/L Potassium (3.5-5.1) mmol/L Chloride (98-107) mmol/L Carbon Dioxide (22-30) mmol/L Anion Gap (5-15) MEQ/L BUN (9-20) mg/dL Creatinine (0.66-1.25) mg/dL Estimated GFR ML/MIN Glucose (74-106) mg/dL Lactic Acid 1.2 (0.4-2.0) Calcium (8.4-10.2) mg/dL Total Bilirubin (0.2-1.3) mg/dL AST (17-59) U/L ALT (0-50) U/L Alkaline Phosphatase (38-126) U/L NT-Pro-B Natriuret Pep (<300) pg/mL Serum Total Protein (6.3-8.2) g/dL Albumin (3.5-5.0) g/dL Procalcitonin (0.030-0.080) ng/mL Urine Color Yellow (Yellow) Urine Appearance Clear (Clear) Urine pH 5.0 (4.6-8.0) Ur Specific [place] 1.025 (1.005-1.030) Urine Protein Negative (Negative) Urine Glucose (UA) >=1000 A (Negative) mg/dL Urine Ketones Negative (Negative) Urine Blood Negative (Negative) Urine Nitrite Negative (Negative) Urine Bilirubin Negative (Negative) Urine Urobilinogen 0.2 (0.2) mg/dL Ur Leukocyte Esterase Negative (Negative) U Hyaline Cast (Auto) NONE SEEN (0-2) /LPF Urine Microscopic RBC 0-2 (0-5) /HPF Urine Microscopic WBC 11-20 A (0-5) /HPF Ur Epithelial Cells None Seen (None Seen) /HPF Urine Bacteria Many A (None Seen) /HPF Urine Culture Reflexed YES (NO) Monoscreen (NEGATIVE) Influenza Type A Ag (NEGATIVE) Influenza Type B Ag (NEGATIVE) RSV (PCR) (NEGATIVE) SARS-CoV-2 (PCR) (NEGATIVE) Group A Strep Antibody (NEGATIVE) 08/08/24 Range/Units 21:00 WBC (4.23-9.07) x10^3/uL RBC (4.63-6.08) x10^6/uL Hgb (13.7-17.5) g/dL Hct (40.1-51.0) % MCV (79.0-92.2) fL MCH (25.7-32.2) pg MCHC (32.3-36.5) g/dL RDW (11.6-14.4) % Plt Count (163-337) x10^3/uL MPV (9.4-12.4) fL Gran % (34.0-67.9) % Immature Gran % (Auto) (0.001-0.429) % Nucleat RBC Rel Count (0.00-0.2) % Eos # (Auto) (0.04-0.54) x10^3/uL Immature Gran # (Auto) (0.001-0.031) x10^3u/L Absolute Lymphs (auto) (1.32-3.57) x10^3/uL Absolute Monos (auto) (0.30-0.82) x10^3/uL Absolute Nucleated RBC (0.00-0.012) x10^3u/L Lymphocytes % (21.8-53.1) % Monocytes % (5.3-12.2) % Eosinophils % (0.8-7.0) % Basophils % (0.2-1.2) % Absolute Granulocytes (1.78-5.38) x10^3/uL Basophils # (0.01-0.08) x10^3/uL D-Dimer (0.0-0.50) mg/L Sodium (135-145) mmol/L Potassium (3.5-5.1) mmol/L Chloride (98-107) mmol/L Carbon Dioxide (22-30) mmol/L Anion Gap (5-15) MEQ/L BUN (9-20) mg/dL Creatinine (0.66-1.25) mg/dL Estimated GFR ML/MIN Glucose (74-106) mg/dL Lactic Acid (0.4-2.0) Calcium (8.4-10.2) mg/dL Total Bilirubin (0.2-1.3) mg/dL AST (17-59) U/L ALT (0-50) U/L Alkaline Phosphatase (38-126) U/L NT-Pro-B Natriuret Pep (<300) pg/mL Serum Total Protein (6.3-8.2) g/dL Albumin (3.5-5.0) g/dL Procalcitonin (0.030-0.080) ng/mL Urine Color (Yellow) Urine Appearance (Clear) Urine pH (4.6-8.0) Ur Specific [place] (1.005-1.030) Urine Protein (Negative) Urine Glucose (UA) (Negative) mg/dL Urine Ketones (Negative) Urine Blood (Negative) Urine Nitrite (Negative) Urine Bilirubin (Negative) Urine Urobilinogen (0.2) mg/dL Ur Leukocyte Esterase (Negative) U Hyaline Cast (Auto) (0-2) /LPF Urine Microscopic RBC (0-5) /HPF Urine Microscopic WBC (0-5) /HPF Ur Epithelial Cells (None Seen) /HPF Urine Bacteria (None Seen) /HPF Urine Culture Reflexed (NO) Monoscreen (NEGATIVE) Influenza Type A Ag NEGATIVE (NEGATIVE) Influenza Type B Ag NEGATIVE (NEGATIVE) RSV (PCR) NEGATIVE (NEGATIVE) SARS-CoV-2 (PCR) NEGATIVE (NEGATIVE) Group A Strep Antibody NOT DETECTED (NEGATIVE) - Radiology Impressions Radiology Exams & Impressions: Radiology Procedures Category Date Time Status CHEST 1 VIEW (PORTABLE) Stat Exams 08/08/24 20:50 Taken CHEST WITH CONTRAST [CT] Stat Exams 08/08/24 22:51 Completed Assessment/Plan (1) UTI (urinary tract infection) Current Visit: Yes Status: Acute Code(s): N39.0 - URINARY TRACT INFECTION, SITE NOT SPECIFIED (2) Diabetes mellitus Current Visit: Yes Status: Chronic Code(s): E11.9 - TYPE 2 DIABETES MELLITUS WITHOUT COMPLICATIONS (3) Hypertension Current Visit: Yes Status: Chronic Code(s): I10 - ESSENTIAL (PRIMARY) HYPERTENSION Telemedicine Encounter - Telemedicine Encounter Telemedicine Encounter: The entirety of this encounter was performed via Telemedicine This visit was performed using real-time audio and video connection between my location and thepatients locationwith the assistance of a surrogateat the patients location. Written or verbal consent was obtained from the patient/guardian to perform this visit usingJoobili technology. Any patient questions regarding the telemedicine interaction were answered. Generalized weakness Sudden onset either may be due to some viral syndrome versus UTI related Will check CT head, Vitamin B12, TSH, vitamin D R/o infection, check blood cultures PT evaluation Sepsis present upon admission Admitted with fever, tachycardia, lactic less than 2 Source seems UTI Received initial empiric antibiotic in ER Keep following up cultures Fever, new onset Etiology may be viral versus UTI related Tested negative for influenza, COVID, RSV, monospot, strep Continue F/u Empiric AB Keep F/u wbc and temp curve Acute hypoxemic resp failure pt currently on 2 liters to keep sats > 90 % X- ray, CT chest -ve will add Incentive spirometry Chronic CHF, EF preserved Pt on lasix at home, i am holding it for now Can resume in next 24-48 hours Seems clinically compensated Diabetes mellitus type 2 Continue sliding scale coverage Will resume home meds Hypertension, poorly controlled Blood pressure was running high Will resume home blood pressure meds Hydralazine as pended for systolic more than 180 COPD Chronic stable Not on home oxygen Will resume home inhalers Elevated D-dimer Rule out for pulmonary embolism by CT chest DVT prophylaxis SCD/Lovenox CODE STATUS full Discharge planning pending clinical stability. I have reviewed patient advice and imaging in detail question and concerns were addressed
[2024-08-09] MEDS ORDERED: HUMALOG SQ PRN (03:17)
[2024-08-09] MEDS ORDERED: Nitrostat 0.4 MG Tablet SL PRN (03:30)
[2024-08-09 05:23] LABS: Hematocrit 46.4 % (40.1-51.0); Hemoglobin 14.9 g/dL (13.7-17.5); Mean Cell Volume 80.6 fL (79.0-92.2); Mean Corpuscular Hemoglobin 25.9 pg (25.7-32.2); Mean Corpuscular Hgb Concent. 32.1 g/dL (32.3-36.5); Mean Platelet Volume 8.9 fL (9.4-12.4); Platelet Count 134 x10^3/uL (163-337); Red Blood Count 5.76 x10^6/uL (4.63-6.08); Red Cell Distribution Width 13.4 % (11.6-14.4); White Blood Count 9.2 x10^3/uL (4.23-9.07)
[2024-08-09] MEDS ORDERED: MEDICATION INTERVENTION MC SCH ×2 (07:00)
[2024-08-09 07:29] LABS: Calcium 8.6 mg/dL (8.4-10.2); Creatinine 1 1.05 mg/dL (0.66-1.25); Potassium 3.9 mmol/L (3.5-5.1); TSH, 3RD Generation 2.5 mIU/L (0.470-4.680)
--- NOTE | 2024-08-09 08:37 | XRAY ---
Indication: Fever. Comparison: May 15, 2024 Portable chest rotated and remains hyperinflated and clear. Heart not enlarged. Bony thorax intact again with mild degenerative changes. No new/acute abnormalities.
--- NOTE | 2024-08-09 08:47 | XRAY ---
Indication: Weakness. Subdural hematoma. Multiple contiguous axial images obtained through the head without contrast. Comparison: October 31, 2022 Again age-appropriate global atrophy. No acute intracranial hemorrhage, abnormal extra-axial fluid collection, mass effect. Fourth ventricle is midline without hydrocephalus. Henson-white matter differentiation preserved. Bony calvarium intact. Visualized paranasal sinuses and mastoid air cells are clear. Impression: Continued negative CT head without contrast exam.
[2024-08-09] MEDS: VITAMIN D PO SCH (09:04)
[2024-08-09] MEDS: NEURONTIN PO SCH (09:04)
[2024-08-09] MEDS: Toprol-Xl 25MG Tablets PO SCH (09:04)
[2024-08-09] MEDS: Ecotrin 325 MG PO SCH (09:04)
[2024-08-09] MEDS: Zestril 10 MG PO SCH (09:04)
[2024-08-09] MEDS: Flomax 0.4 MG PO SCH (09:04)
[2024-08-09] MEDS: ROCEPHIN 1 GM / 100 ML NaCl 1 GM/100 ML IVPB IV SCH (09:04)
[2024-08-09] MEDS: ENOXAPARIN SODIUM SQ SCH (09:04)
[2024-08-09] MEDS ORDERED: NON-FORMULARY ITEM (Dapagliflozin Propanediol [Farxiga] 5 MG Tablet) PO SCH (10:00)
[2024-08-09] MEDS ORDERED: NON-FORMULARY ITEM (Budesonide/Glycopyr/Formoterol [Breztri Aerosphere Inhaler] 10.7 GM Hf IH SCH (10:00)
[2024-08-09] MEDS: TYLENOL 325 MG PO PRN (11:47)
[2024-08-09] MEDS ORDERED: LIPITOR 40MG PO SCH (22:00)
[2024-08-09] MEDS: ZOCOR 20MG PO SCH (22:15)
[2024-08-10 05:25] LABS: Mean Cell Volume 81.3 fL (79.0-92.2); Mean Corpuscular Hgb Concent. 31.9 g/dL (32.3-36.5); Mean Platelet Volume 8.5 fL (9.4-12.4); Platelet Count 129 x10^3/uL (163-337); Red Blood Count 5.78 x10^6/uL (4.63-6.08); Red Cell Distribution Width 13.6 % (11.6-14.4); White Blood Count 5.6 x10^3/uL (4.23-9.07)
[2024-08-10 05:50] LABS: ALBUMIN 3.8 g/dL (3.5-5.0); ANION GAP 11.9 MEQ/L (5-15); BILIRUBIN,TOTAL 1.7 mg/dL (0.2-1.3); Calcium 8.9 mg/dL (8.4-10.2); Creatinine 1 1.08 mg/dL (0.66-1.25); EST GLOMERULAR FILTRATION RATE 72.5 ML/MIN; Total Protein 6.7 g/dL (6.3-8.2)
--- NOTE | 2024-08-10 11:46 | PCM.DS ---
Discharge Summary Date of Admission: 08/09/24 01:24 Date of Discharge: 08/10/24 Admitting Physician: DOLORES SHIN MD Primary Care Provider: TERRI FRANK DO Allergies Allergies No Known Drug Allergies Allergy (Verified 08/08/24 20:38) Hospital Summary - Hospital Course Hospital Course: 74 years old male with pmhx significant for diabetes mellitus type 2 hypertension, COPD, and hyperlipidemi. He initially came to ER on 08/08/24 with generalized weakness for 3 days w/o localized deficit. He felt no strength in all extremities, unable to stand up, denied having chest pain, SOB, no N/V/D, no other GI or urinary Sx noted. In the ER the initial blood pressure was 176/83 with pulse of 124 and temperature of 101.4. As far as lab workup concern it was significant for white cell count 9.5 hemoglobin 15.2 platelets 149. Sodium 135 potassium 3.7 chloride 105 bicarb 20 BUN 19 creatinine 1.07. Lactic acid 1.2. Urine was positive for many bacteria with WBCs 11-20. He was tested negative for influenza respiratory send CT and COVID. He was also tested negative for group A strep antibody. D-dimer was reported 1.05 lactate 1.2. Monoscreen was also negative. Chest CT was done to rule out pulmonary embolism it remained unremarkable except multiple emphysematous changes otherwise negative. Patient admitted for further care. Pt had a temp the night admitted, and last night of 99 F. Pt reports he had a heated blanket on him last night. Urine culture gram negatve and sensitivity pending. Pt is adamant he is discharging today. He has no weakness and did well with PT. He states he feels fine and does not need to be here. Will continue to follow culture OP. He will need f/u OP for elevated bili. He denies any abd. pain. He denies CP, SOB, abd. pain, N/V/D. - Vitals & Intake/Output Vital Signs: Vital Signs Temperature 98.8 F 08/10/24 08:00 Pulse Rate 95 H 08/10/24 08:00 Respiratory Rate 17 08/10/24 08:00 Blood Pressure 139/78 08/10/24 08:00 O2 Sat by Pulse Oximetry 94 L 08/10/24 08:00 Intake & Output: Intake & Output 11/18/24 11/19/24 11/20/24 11/21/24 11:59 11:59 11:59 11:59 Intake Total 380 1280 Output Total 150 Balance 230 1280 Weight 104.3 kg - Lab Result Diagrams: 08/10/24 04:30 08/10/24 04:30 Lab Results-Last 24 Hrs: Lab Results-Last 24 Hours 08/09/24 08/09/24 08/09/24 Range/Units 11:33 16:21 22:13 WBC (4.23-9.07) x10^3/uL RBC (4.63-6.08) x10^6/uL Hgb (13.7-17.5) g/dL Hct (40.1-51.0) % MCV (79.0-92.2) fL MCH (25.7-32.2) pg MCHC (32.3-36.5) g/dL RDW (11.6-14.4) % Plt Count (163-337) x10^3/uL MPV (9.4-12.4) fL Sodium (135-145) mmol/L Potassium (3.5-5.1) mmol/L Chloride (98-107) mmol/L Carbon Dioxide (22-30) mmol/L Anion Gap (5-15) MEQ/L BUN (9-20) mg/dL Creatinine (0.66-1.25) mg/dL Estimated GFR ML/MIN Glucose (74-106) mg/dL POC Glucometer 150 H 135 H 170 H (74 to 106) mg/dL Calcium (8.4-10.2) mg/dL Total Bilirubin (0.2-1.3) mg/dL AST (17-59) U/L ALT (0-50) U/L Alkaline Phosphatase (38-126) U/L Serum Total Protein (6.3-8.2) g/dL Albumin (3.5-5.0) g/dL 08/10/24 08/10/24 08/10/24 Range/Units 04:30 04:30 08:04 WBC 5.6 (4.23-9.07) x10^3/uL RBC 5.78 (4.63-6.08) x10^6/uL Hgb 15.0 (13.7-17.5) g/dL Hct 47.0 (40.1-51.0) % MCV 81.3 (79.0-92.2) fL MCH 26.0 (25.7-32.2) pg MCHC 31.9 L (32.3-36.5) g/dL RDW 13.6 (11.6-14.4) % Plt Count 129 L (163-337) x10^3/uL MPV 8.5 L (9.4-12.4) fL Sodium 137 (135-145) mmol/L Potassium 4.0 (3.5-5.1) mmol/L Chloride 103 (98-107) mmol/L Carbon Dioxide 26 (22-30) mmol/L Anion Gap 11.9 (5-15) MEQ/L BUN 21 H (9-20) mg/dL Creatinine 1.08 (0.66-1.25) mg/dL Estimated GFR 72.5 ML/MIN Glucose 125 H (74-106) mg/dL POC Glucometer 141 H (74 to 106) mg/dL Calcium 8.9 (8.4-10.2) mg/dL Total Bilirubin 1.70 H (0.2-1.3) mg/dL AST 31 (17-59) U/L ALT 27 (0-50) U/L Alkaline Phosphatase 83 (38-126) U/L Serum Total Protein 6.7 (6.3-8.2) g/dL Albumin 3.8 (3.5-5.0) g/dL Micro Results-Entire Visit: Microbiology 08/08/24 20:53 Urine Culture - Preliminary Urine, Void GRAM NEGATIVE ID AND SENSITIVITY PENDING 08/08/24 20:40 Blood Culture - Preliminary Blood 08/08/24 20:45 Blood Culture - Preliminary Blood Accuchecks Date 08/10/24 Date 08/09/24 Date 08/09/24 Time 08:24 Time 22:50 Time 16:40 - Radiology Exams Ordered Rad Exams-Entire Visit: Radiology Procedures Category Date Time Status CHEST 1 VIEW (PORTABLE) Stat Exams 08/08/24 20:50 Completed CHEST WITH CONTRAST [CT] Stat Exams 08/08/24 22:51 Completed HEAD WITHOUT CONTRAST [CT] Routine Exams 08/09/24 03:19 Completed - Procedures and Test Procedures and Tests throughout Hospitalization: Therapy Orders & Screens 08/09/24 03:17 PT Eval & Treat ( Order) ONCE Reason for Eval:: Weakness Diagnosis: UTI, fever, generalized weakness Discharge Exam General Appearance: no apparent distress, alert Neurologic Exam: alert, oriented x 3, cooperative, normal mood/affect, nml cerebellar function, sensation nml, No motor deficits Eye Exam: PERRL, EOMI, eyes nml inspection Ears, Nose, Throat Exam: normal ENT inspection, pharynx normal, moist mucous membranes Neck Exam: normal inspection, non-tender, supple, full range of motion Respiratory Exam: normal breath sounds, lungs clear, No respiratory distress Cardiovascular Exam: regular rate/rhythm, normal heart sounds Gastrointestinal/Abdomen Exam: soft, No tenderness, No mass Male Genitalia Exam: deferred Rectal Exam: deferred Back Exam: normal inspection, normal range of motion, No CVA tenderness, No vertebral tenderness Extremity Exam: normal inspection, normal range of motion Skin Exam: normal color, warm, dry Final Diagnosis/Problem List - Final Discharge Diagnosis/Problem (1) UTI (urinary tract infection) Current Visit: Yes Status: Acute Assessment & Plan: - UC gram negative, sensitivity pending- will follow continue to follow OP - Ceftriaxone - will continue OP antibiotocs - procal 0.672 - CBC, CMP reviewed Code(s): N39.0 - URINARY TRACT INFECTION, SITE NOT SPECIFIED (2) Vitamin D deficiency Current Visit: Yes Status: Acute Assessment & Plan: - Vitamin D 28.1 - advised sunlight for 30 minutes daily per guidelines- f/u OP with PCP Code(s): E55.9 - VITAMIN D DEFICIENCY, UNSPECIFIED (3) Weakness Current Visit: Yes Status: Resolved Assessment & Plan: - resolved since admission - PT eval and treat Code(s): R53.1 - WEAKNESS (4) Bilirubinemia Current Visit: Yes Status: Acute Assessment & Plan: - Bili 1.70- pt denies abd pain - F/U for repeat labs OP Code(s): E80.6 - OTHER DISORDERS OF BILIRUBIN METABOLISM (5) Thrombocytopenia Current Visit: Yes Status: Chronic Assessment & Plan: - Plt 129- recheck OP - Consider referral to hematology for further eval (6) D-dimer, elevated Current Visit: Yes Status: Acute Assessment & Plan: - D-Dimer on admission 1.05 - CT negative for PE and reviewed Code(s): R79.89 - OTHER SPECIFIED ABNORMAL FINDINGS OF BLOOD CHEMISTRY (7) Fever Current Visit: Yes Status: Acute Assessment & Plan: - on admission - last night temp of 99 but heated blanket brought in. - pt has no fever today - BC x2 negative Code(s): R50.9 - FEVER, UNSPECIFIED (8) Tachycardia Current Visit: Yes Status: Acute Assessment & Plan: - tachycardia only with elevated temp - tele Code(s): R00.0 - TACHYCARDIA, UNSPECIFIED (9) Diabetes mellitus Current Visit: Yes Status: Chronic Assessment & Plan: - accuchecks ac/hs, humalog s/s - A1C 6.31- controlled Code(s): E11.9 - TYPE 2 DIABETES MELLITUS WITHOUT COMPLICATIONS (10) Hypertension Current Visit: Yes Status: Chronic Assessment & Plan: - continue BP meds - BP stable Code(s): I10 - ESSENTIAL (PRIMARY) HYPERTENSION (11) Obesity (BMI 30.0-34.9) Current Visit: Yes Status: Chronic Assessment & Plan: - advised ADA diet and exercise control Code(s): E66.811 - OBESITY, CLASS 1 - Discharge Discharge Date: 08/10/24 Disposition: Home, Self-Care Condition: Stable Prescriptions: Continue Metoprolol Succinate 25 mg Xl* [Toprol-Xl 25MG Tablets] 25 mg PO DAILY Lisinopril 10 mg [Zestril 10 MG] 10 mg PO DAILY Linaclotide [Linzess] 145 mcg PO DAILY Gabapentin 300 mg PO BID Furosemide 20 mg [Lasix 20 mg] 1 tab PO DAILY Dapagliflozin Propanediol [Farxiga] 5 mg PO DAILY Atorvastatin Calcium 40 mg PO HS Aspirin EC 325 mg [Ecotrin 325 MG] 1 tab PO DAILY Cholecalciferol (Vitamin D3) [Vitamin D] 1,000 unit PO DAILY Potassium Chloride [Klor-Con 10] 1 tab PO BID Nitroglycerin 0.4 mg Tablet [Nitrostat 0.4 MG Tablet] 0.4 mg SL UD Tamsulosin HCl 0.4 mg [Flomax 0.4 MG] 0.4 mg PO DAILY Semaglutide [Ozempic] 2 mg SQ WEEKLY Budesonide/Glycopyr/Formoterol [Breztri Aerosphere Inhaler] 2 puff IH BID Instructions: Urinary tract infections in adults Additional Instructions: REFERRAL SENT TO [facility]. THEY WILL CONTACT YOU TO ARRANGE AT TIME TO COME SEE YOU. THEIR PHONE NUMBER IS [phone] IF YOU NEED ANYTHING A REFERRAL WAS SENT TO [facility] TO SEE IF YOU QUALIFY FOR HOME DELIVERED MEALS- THEY WILL CALL TO DISCUSS THIS WITH YOU. YOU CAN CALL THEM AT [phone] Follow up with: TERRI FRANK DO [Primary Care Provider] - 08/21/24 3:30 pm Forms: Discharge Instructions
[2024-08-10 11:50] VITALS: BP 147/74; PULSE 91; RESP 18; TEMP 98.2; O2SAT 93
== END 2024-08-10 12:04 | disposition home or self-care (01) ==
LOC: ED 20:09 → MED SURG 08-09 01:24
PROVIDERS: ADMIT Internal Medicine; ATTEND Internal Medicine
DX: N39.0 Urinary tract infection, site not specified (principal); E55.9 Vitamin D deficiency, unspecified; Z59.82 Transportation insecurity; R53.1 Weakness; E80.6 Other disorders of bilirubin metabolism; D69.6 Thrombocytopenia, unspecified; R79.89 Other specified abnormal findings of blood chemistry; R50.9 Fever, unspecified; R00.0 Tachycardia, unspecified; E11.9 Type 2 diabetes mellitus without complications; I10 Essential (primary) hypertension; E66.811 Obesity, class 1; Z79.899 Other long term (current) drug therapy
CPT/HCPCS: 0241U; 36415; 70450; 71045; 71260; 80048; 80053; 81001; 82306; 82607; 82947; 83036; 83605; 83880; 84145; 84443; 85025; 85027; 85379; 86308; 87040; 87086; 87651; 93005; 93041; 94760; 96374; 96375; 97161; 99285; Q3014; 87077; 87186; 93268; J0696; J1650; J1956; J2405; A9270-GY; G0378